=== PATIENT | female | born 1960 | race Caucasian/White ===

== ENCOUNTER 2024-08-11 04:48 | Inpatient (IN) | payer MEDICARE, SELFPAY ==
[2024-08-11] VITALS (14 sets, daily range): BP systolic 134–187; BP diastolic 63–91; PULSE 61–76; O2SAT 95–98; BMI 34.5
--- NOTE | 2024-08-11 01:10 | ED.GENMED ---
History of Present Illness
General
Chief Complaint: Breathing Problem
Source: patient and family (Son who is at bedside and providing most of HPI.)
Exam Limitations: none
Time Seen by Provider: 08/11/24 00:58
Nursing documentation reviewed up to this point in time: agreed with
History of Present Illness
History of Present Illness:
This is a 63-year-old woman who resides at home with family. She has history of MS, CVA with left hemiparesis but does ambulate with a walker. History of hypertension, hyperlipidemia, CAD/WA, pacemaker, UTI/kidney stones, [id number]
diabetes�diet controlled, hypothyroidism.
She is brought to the ED tonight by son with concern for URI symptoms that initially began a week and a half ago. Multiple family members with similar URI symptoms over the past week and a half. Initially symptoms were improving and she seemed
relatively well yesterday as well as this morning however cough has persisted and has worsened throughout the day today with progression of generalized weakness throughout the day today, increasing shortness of breath and onset of high fever tonight
with axillary temp reported at 102-103. He has been given her Coricidin HBP 3 times throughout the day today and gave her Tylenol 1000 mg around 11 PM tonight. She has had 2 episodes of vomiting today. She denies abdominal pain, no diarrhea nor
constipation. She denies back pain or flank pain. She denies dysuria and urgency nor hematuria.
No recent travel. She denies leg pain or swelling.
Noted to have low pulse ox at home at 89% prompting son to bring his mom to the ED. He states she was able to walk out to the car with his assistance.
No history of chronic lung disease.
History of MS but currently on no Biologics/takes no immunosuppressants.
Past History
Past History
ED Past Medical History: Arrthythmia, CVA, HTN, Hypercholesterolemia, NIDDM (Diet controlled), Hypothyroidism, Psychiatric (Depression) and Other (Chronic low back pain, MS; kidney stones, UTIs. Previous hospitalization 2021 for kidney stone
accompanied with UTI/sepsis.)
ED Past Surgical History: Cardiac, Gynecological, Orthopedic and Other (Thyroid)
Social History
Tobacco: Non-smoker
Alcohol: None
Drug: None
Personal: Single
Living: with family (Resides with her sister)
Employment: Disabled
Family History
Family History: Other (Noncontributory)
Phy Exam
Physical Exam
Physical Exam:
GENERAL: 63-year-old woman appears her stated age, appears somewhat chronically disabled but is bright and alert, answering questions appropriately and following commands without difficulty. Intermittent harsh/moist nonproductive cough is noted.
Low-grade fever noted. Mild resting tachypnea with room air pulse ox of 88%. She has been placed on 2 L nasal cannula oxygen. Son is at bedside.
EYE: pupils equal and reactive. anicteric
NECK: Supple, nontender, no meningismus, no significant adenopathy.
ENT: posterior pharynx is clear, oral mucosa is minimally dry. TM clear b/l, mild clear rhinorrhea.
CARDIAC: Regular rhythm, mildly tachycardic. no murmur.
LUNGS: Mild resting tachypnea, fine rhonchi at bases right greater than left, somewhat poor inspiratory effort.
ABDOMEN: Soft, nondistended, without focal tenderness, no r/g, no cvat. normoactive BS.
NEUROLOGICAL: Alert and oriented x3, minimal left hemiparesis.
SKIN: Warm and dry, normal color, skin intact. No rash.
MUSCULOSKELETAL: No C/C/E. peripheral pulses are full and equal b/l. No palpable tenderness.
PSYCH: Normal and appropriate interaction.
Scores
Heart Failure Risk
Heart Failure Risk Score: Not Applicable
Sepsis
Sepsis Screening
Sepsis Assessment: Sepsis
Sepsis Screening: Lactate >2mmol/L and Worsening O2 Saturation
Sepsis Screen
Sepsis Screen: Sepsis
Date: 08/11/24
Time: 07:04
Course
Orders/Labs/Results
Orders:
Orders
08/11/24 00:49
EKG [Electrocardiogram (*1)] Urgent
Reason for Study: Vertigo / Dizzy
EKG- Treatment ONCE
08/11/24 01:09
0.9% Sodium Chloride 1000 ml [Nss] 1,800 ml IV NOW STA
CR Chest - 2 Views Urgent
Comment:
Reason For Exam: cough, fever, hypoxia
08/11/24 01:16
CMP [Comprehensive Metabolic Panel] Urgent
COVID-19 Antigen Urgent
Source: Nasal Swab
Complete Blood Count/With Diff Urgent
Lactic Acid Urgent
Influenza A+B Rapid Molecular Urgent
EMMETT Source: Nasal Swab
Specimen Description:
08/11/24 01:35
Blood Culture Q30M
EMMETT Source: Blood/Venous
Specimen Description:
Blood Culture Q30M
EMMETT Source: Blood/Venous
Specimen Description:
08/11/24 02:08
Oseltamivir Phosphate [Tamiflu] 75 mg PO NOW STA
08/11/24 02:54
Urinalysis Reflex To Culture Urgent
Date Specimen was Collected: 08/11/24
Time Specimen was Collected: 02:53
Urine Microscopic Reflex Cult Urgent
Urine Culture Urgent
EMMETT Source: U
Specimen Description:
Date Specimen was Collected: 08/11/24
Time Specimen was Collected: 02:53
08/11/24 02:57
Acetaminophen [Tylenol] 1,000 mg PO NOW STA
Ibuprofen [Motrin] 600 mg PO NOW STA
08/11/24 04:00
Flush (0.9% Sodium Chloride) [Flush (Nss)] See Dose Instructions IV PER PROTOCOL
08/11/24 04:28
CefTRIAXone [Rocephin] 1,000 mg IV NOW STA
Doxycycline [Vibramycin] 100 mg PO NOW STA
08/11/24 04:29
Admit/Transfer Patient As Directed
Co-Sign Provider:
Level of Care: Inpatient admission
Assign to:: Telemetry
Physician / Group: Rivera
Diagnosis: Influenza A, Sepsis
Reason for Telemetry: Arrhythmia
Date to Stop Telemetry: 08/14/24
Time to Stop Telemetry: 11:00
Reason for Hospitalization: Influenza A, Sepsis
Expected length of stay greater than two midnights?: Yes
ELOS- Estimated Length of Stay in days: 3
I certify the patient meets the requirements for IP care: Yes
PRN Pain Medication Management As Directed
May give lesser potent ordered pain med per pt: Yes
preference::
Protocol:: Medication orders for pain may be administered in a
manner that supports deferring to patient preference
when the pt is:
- Requesting an ordered lesser potent pain medication.
Least to most potent pain medications are defined
as: acetaminophen < NSAID < tramadol < opioids
(morphine, oxycodone, hydromorphone).
- Requesting a lesser dose of the same medication IF
ORDERED.
- Requesting a less intrusive route of administration
if both routes are prescribed by the provider (PO <
IV).
08/11/24 04:30
Code Status As Directed
Resuscitation Status: Full Code
08/11/24 04:43
Sterile Water [Sterile Water For Injection] 10 ml .ROUTE .STK-MED ONE
08/11/24 05:45
Acetaminophen [Tylenol] 650 mg PO Q4HPRN PRN
Albuterol [ProAIR HFA INHALER] 2 puff INH R Q4HPRN PRN
Dextrose 50%-Water [Dextrose 50% Syringe] 12.5 grams IV [id number] PRN
Glucagon [GlucaGen] 1 mg IM PRN PRN
Lactated Ringers [Lr] 1,000 ml IV 100 mls/hr
08/11/24 05:45
Activity As Directed
Activity Level: Ambulate
With Assistance
Bedside Glucose Monitoring As Directed
Frequency: AC&HS
Additional Instructions:: Change to q6h if pt on TPN, tube feeding or not eating
EKG with chest pain [ECG as needed] As Directed
ECG as needed for:: Chest Pain
I/O [Intake/ Output] As Directed
Frequency: Per unit guidelines
Precautions As Directed
Type of Precautions: Droplet
Vital Signs As Directed
Frequency: Per unit guidelines
Weight As Directed
Frequency: Daily
Chest PT [Rx Chest Pt] [RESP] Routine
Special Instructions: BID
Oxygen Therapy [O2 Therapy] [RESP] Routine
Titrate/Wean O2 to maintain O2 sat greater than (%): 94
Ot Eval And Treat Routine
PT Consult [Pt Eval And Treat] Routine
Activity Level: Ambulate
With Assistance
US Renal With Bladder Routine
Comment:
Reason For Exam: Incontinence, abnormal UA
DX Deep Vein Thrombosis Video Routine
08/11/24 06:00
EKG [Electrocardiogram (*1)] IN AM
Reason for Study: Chest Pain
Regular
At Your Request: Full Participation
Levothyroxine [Synthroid] 150 mcg PO DAILY @ 0600
08/11/24 06:52
Basic Metabolic Panel IN AM
Complete Blood Count/No Diff IN AM
Glycohemoglobin (HgbA1c) IN AM
Lactic Acid IN AM
08/11/24 07:30
Insulin Aspart Corrective Low [Novolog Flexpen-Low Resistance] See Protocol SC AC
08/11/24 08:00
Amlodipine [Norvasc] 5 mg PO DAILY
Aspirin Chewable [Low Strength Aspirin] 81 mg PO DAILY
Bupropion(24Hr)Extended Releas [WELLBUTRIN XL (24 hour extended release)] 150 mg PO DAILY
Clopidogrel Bisulfate [Plavix] 75 mg PO DAILY
Guaifenesin [Mucinex] 600 mg PO Q12
Pantoprazole [Protonix] 40 mg PO DAILY
Paroxetine [Paxil] 40 mg PO DAILY
08/11/24 18:00
Enoxaparin Sodium [Lovenox] 40 mg SC QPM
08/11/24 20:00
Doxycycline [Vibramycin] 100 mg PO Q12
Oseltamivir Phosphate [Tamiflu] 75 mg PO BID
08/11/24 22:00
Atorvastatin [Lipitor] 80 mg PO HS
08/12/24 06:00
CefTRIAXone [Rocephin] 1,000 mg IV Q24H
08/14/24 11:00
DC Protocol for Telemetry ONCE
Abnormal Lab Results
08/11/24 08/11/24
16 02:54
WBC 14.8 H 10^3/uL
(4.8-10.8)
MCH 31.2 H pg
(27.0-31.0)
Abs Immat Gran (auto) 0.1 H 10^3/uL
(0-0.05)
Absolute Neuts (auto) 13.7 H 10^3/uL
(1.4-6.5)
Absolute Lymphs (auto) 0.4 L 10^3/uL
(1.2-3.4)
Immature Gran % 0.6 H %
(0-0.5)
Neutrophils % 93.0 H %
(42.2-75.2)
Lymphocytes % 2.9 L %
(20.5-51.1)
BUN 21 H mg/dl
(7-17)
Glucose 207 H mg/dl
(70-99)
Lactic Acid 2.5 H mmol/L
(0.7-2.0)
Total Bilirubin 1.9 H mg/dl
(0.2-1.3)
Ur Occult Blood Reflex 4+ A
(Negative)
Urine Nitrite (Reflex) Positive A
(Negative)
Leukocyte Esterase Rfl 2+ A
(Negative)
Urine RBC >100 A /HPF
(0-2)
Urine WBC (Reflex) >100 A /HPF
(0-5)
Urine Bacteria (Reflex) Many A
(Negative)
Urine Albumin (Reflex) 2+ A
(Neg - Trace)
08/11/24 01:16
08/11/24 01:16
Vital Signs
Initial and Last Documented VS:
Initial Vital Signs
Temp Pulse Resp BP Pulse Ox
99.6 F 116 28 152/90 88
08/11/24 00:42 08/11/24 00:42 08/11/24 00:42 08/11/24 00:42 08/11/24 00:42
Last Documented Vital Signs
Temp Pulse Resp BP Pulse Ox
99.1 F 78 24 151/73 98
08/11/24 06:00 08/11/24 06:00 08/11/24 06:00 08/11/24 06:00 08/11/24 06:16
MDM/Problems Addressed
Differential Diagnosis Includes:
Patient presents with fever, tachycardia, acute hypoxia requiring supplemental oxygen.
She meets SIRS criteria with significant concern for sepsis.
Concern for pneumonia, COVID-19, influenza.
Prior history of UTIs thus this is a consideration as well.
Mildly tachycardic but otherwise is hemodynamically stable.
Will initiate IV fluids. Labs, COVID, influenza and chest x-ray are pending.
Due to acute hypoxic respiratory failure, significant concern for sepsis patient will require acute hospitalization for further treatment and stabilization.
Chronic conditions affecting care: DM and HTN
*Radiology
Radiology exam reviewed: preliminary read by ED provider (Chest x-ray shows poor inspiratory effort. No definitive infiltrate nor evidence of CHF.)
*Pulse Oximetry
Patient hypoxic: yes
*EKG
Interpreted by ED Provider?: Yes
Comparison EKG: no changes (Unchanged from previous March 2022)
Rate: tachycardiac
Rhythm: sinus
[place]: left axis deviation
QRS Pattern: left bundle branch block
Ischemia: no ischemia
*Tray Room Worker Interpretation
Rate: tachycardiac
Interpretation: abnormal
Rhythm: sinus
*Critical Care Note
Total Time (30-74mins, 75-104mins- exclusive of procedures): 30
comment:
Critical care statement: A total of 30 minutes of critical care time was provided for this patient. This includes management of unstable vital signs, evaluation of the patient at bedside, reviewing the patient's pertinent medical records, discussion
with consultants, review of old EKGs and review of pertinent medical records. This time with separate from time utilized to perform the aforementioned documented procedures
Update Note
Update Note:
02:44
COVID is negative but influenza A is positive for influenza A.
Patient has had no exposure to chickens, poultry nor exposure to raw milk.
Labs show elevated white blood cell count of 14.8. Mildly elevated lactic acid at 2.5. Normal creatinine, normal LFTs. Bilirubin mildly elevated at 1.9 but similar and unchanged from previous.
Urinalysis is pending however patient has had no definitive UTI symptoms.
Chest x-ray shows poor inspiratory effort, no definitive evidence of infiltrate.
I suspect fever, cough, hypoxia are related to acute influenza A and she has been started on Tamiflu.
With acute hypoxic respiratory failure, elevated lactic acid, white blood cell count and fever patient meets sepsis criteria.
Will admit to hospitalist service.
ED Attending Note
-
Portions of this chart may have been created with voice recognition software.� Occasional wrong word or��sound alike� substitutions may have occurred due to the inherent limitations of voice recognition software.
Discharge Plan
Departure
Patient Disposition: Admit
Date of Disposition: 08/11/24
Time of Disposition: 02:43
Admit to: Med/Surg
Admit to doctor: Rivera
Presentation/result/management discussed w/ accepting MD/DO: Hospitalist
Condition: Serious
Covid-19: Negative COVID-19
Discharge Problem:
Influenza A, Sepsis
Interventions
Interventions:
*Risk Screen - Suicide Last Done: 08/11/24 00:42
*General Assessment Last Done: 08/11/24 05:52
*Neglect/Abuse Screening Last Done: 08/11/24 00:42
ED- Fall Risk Assessment Last Done: 08/11/24 01:57
*ED COVID-19 Vaccine History Last Done: 08/11/24 05:52
*Nursing Disposition Last Done: 08/11/24 05:50
ED- Cardiac Assessment Last Done: 08/11/24 01:57
ED- Neurological Assessment Last Done: 08/11/24 01:57
ED- Pulmonary Assessment Last Done: 08/11/24 01:57
ED-Skin Assessment Last Done: 08/11/24 01:57
Discharge Date and Time
Discharge Date/Time: 08/11/24 05:50
[2024-08-11] MEDS: NSS 1800 ML IV (01:15)
[2024-08-11 01:41] LABS: % Basophils 0.3 % (0-2); % Immature Granulocytes 0.6 % (0-0.5); % Lymphocytes 2.9 % (20.5-51.1); % Monocytes 3.2 % (1.7-9.3); Absolute Immature Granulocytes 0.1 10^3/uL (0-0.05); Absolute Lymphocytes 0.4 10^3/uL (1.2-3.4); Absolute Monocytes 0.5 10^3/uL (0.1-0.6); Absolute Neutrophils 13.7 10^3/uL (1.4-6.5); Hematocrit 40.6 % (37.0-47.0); Hemoglobin 13.8 g/dL (12.0-16.0); Mean Corpuscular Hgb 31.2 pg (27.0-31.0); Mean Corpuscular Volume 91.9 fL (81.0-99.0); Mean Platelet Volume 10.2 fL (7.4-10.4); Nucleated Red Blood Cells % 0 %; Platelet Count 251 10^3/uL (130-400); Red Blood Cell Count 4.42 10^6/uL (4.20-5.40); Red Cell Dist. Width 12.9 % (11.5-14.5); White Blood Cell Count 14.8 10^3/uL (4.8-10.8)
[2024-08-11 01:51] LABS: ALT (SGPT) 22 U/L (0-35); AST (SGOT) 24 U/L (14-36); Albumin 4.2 g/dl (3.5-5.0); Alkaline Phosphatase 114 U/L (38-126); Blood Urea Nitrogen 21 mg/dl (7-17); Calcium 9.1 mg/dl (8.4-10.2); Carbon Dioxide 28 mmol/L (22-30); Chloride 102 mmol/L (98-107); Estimated Creatinine Clearance 68 ml/min; Glucose 207 mg/dl (70-99); Potassium 3.8 mmol/L (3.5-5.1); Sodium 142 mmol/L (135-145); Total Bilirubin 1.9 mg/dl (0.2-1.3); Total Protein 7.5 g/dl (6.3-8.2); eGFR > 60.00
[2024-08-11 01:58] LABS: COVID-19 Antigen Negative (Negative)
[2024-08-11 02:16] LABS: Lactic Acid 2.5 mmol/L (0.7-2.0)
[2024-08-11] MEDS: TAMIFLU 75 MG PO ×2 (02:46→20:10)
[2024-08-11] MEDS: MOTRIN 600 MG PO (03:00)
[2024-08-11] MEDS: TYLENOL 1000 MG PO (03:00)
[2024-08-11 03:04] LABS: Urine Albumin 2+ (Neg - Trace); Urine Bilirubin Negative (Negative); Urine Character Very Cloudy (Clear); Urine Color Yellow; Urine Glucose Negative (Negative); Urine Ketone Negative (Negative); Urine Leukocyte 2+ (Negative); Urine Nitrite Positive (Negative); Urine Occult Blood 4+ (Negative); Urine Urobilinogen Negative (Neg - 1+); Urine pH 6.5 (5.0-9.0)
--- NOTE | 2024-08-11 04:34 | HPS.HSE ---
Family Physician
-
Family Physician: Parmjit Dias
Chief Complaint
-
Cough, Weakness
History of Present Illness
Patient is a 63y F with PMH significant for ASCVD, prior CVA and hypertension who presents to ED complaining of cough, weakness and chills. History obtained from patient and her family at the bedside. Entire household has been ill with fevers
and cough for the past 2 weeks or so. Patient notes that she did not receive influenza vaccination this season. Patient had cough and chills and seemed to be clinically improving; however, her symptoms then became much worse. Patient has had
increased cough and shaking chills over the past 2 days. Today she felt nauseated and had non-bloody emesis. Family noted that she seemed confused and weaker than usual. Patient was brought to the ED for further evaluation and treatment.
At the time of my examination, patient is awake and alert and states that she feels much improved from prior. She denies any pain including abdominal pain or flank pain. She is intermittently incontinent of urine and son notes that this has seemed
worse lately.
No dysuria, hematuria, etc.
Medical History
Past Medical History
Past Medical History: Reports Other
Additional Past Medical History:
ASCVD / CVA
Hypertension
Obesity
Diet-Controlled DM-II
Hypothyroidism
Nephrolithiasis
Uterine Cancer
Past Surgical History: Reports Other
Additional Past Surgical History:
PTCA with Stent
PPM Placement
DRAKE / BSO
Left TKA
Ureteroscopy with Stent
Social History
Tobacco: Former Smoker (Quit smoking > 30 years ago.)
Alcohol: None
Drug: None
Living: With Family
Family History
Family History: Not pertinent
Allergies / Home Medications
Allergies reflects when Allergies were last updated in [employer].
Home Medications with original date entered in [employer]
Allergy/Medication List:
Allergies
Allergy/AdvReac Type Severity Reaction Status Date / Time
No Known Allergies Allergy Verified 08/11/24 00:44
Home Medications
aspirin 81 mg chewable tablet 81 mg PO DAILY Blood clot prevention/tx 01/13/19
ezetimibe 10 mg tablet 10 mg PO HS High cholesterol 01/13/19
clopidogrel 75 mg tablet 75 mg PO DAILY Blood clot prevention/tx 03/03/19
atorvastatin 80 mg tablet 80 mg PO HS High cholesterol 04/07/22
paroxetine HCl 40 mg tablet 40 mg PO DAILY mental health 04/07/22
amlodipine 5 mg tablet 5 mg PO DAILY 30 days #30 tabs 04/08/22
cholecalciferol (vitamin D3) 25 mcg (1,000 unit) tablet (Vitamin D3) 25 mcg PO DAILY 05/02/22
bupropion HCl 150 mg 24 hr tablet, extended release 150 mg PO DAILY 08/11/24
levothyroxine 150 mcg tablet 150 mcg PO DAILY 08/11/24
Review of Systems
-
History Source: Patient and Family
A 12 point ROS was completed and negative except as noted: Yes
Constitutional: Reports Fever, Fatigue and Chills
EENT: Reports Sore Throat and Runny Nose
Respiratory: Reports Cough and Trouble Breathing; Denies Hemoptysis
Cardiac: Denies Chest Pain or Palpitations
Abdomen/GI: Reports Nausea and Vomiting; Denies Abdominal Pain or Diarrhea
: Reports Frequency and Incontinence; Denies Dysuria, Flank Pain or Bleeding
Musculoskeletal: Denies Joint Pain or Edema
Neurological: Reports Weakness; Denies Dizzy or Headache
Psych: Denies Depression or Anxiety
Physical Exam
Vital Signs
Vital Signs
Temp Pulse Resp BP Pulse Ox
99.7 F 87 24 167/91 95
08/11/24 04:30 08/11/24 03:30 08/11/24 03:30 08/11/24 03:01 08/11/24 03:39
Physical Exam
General: Other (63y F in no acute distress, Hacking cough appreciated during exam.)
HEENT: Other (Dry MM. Thick neck.)
Respiratory: Other (Coarse breath sounds bilaterally - R > L. No wheezing or rales.)
Cardiac: S1/S2, Regular Rhythm and Murmur (II/ ROSEANNA)
GI: Soft, Non Tender, Non Distended and Normal Bowel Sounds
Musculoskeletal: No Clubbing, No Cyanosis and No Edema
Neuro: AO x 3 and Other (Left sided weakness - chronic. No new focal deficits.)
Laboratory Results
-
08/11/24 01:16
08/11/24 01:16
Laboratory Results
Lactic Acid 2.5 mmol/L (0.7-2.0) H 08/11/24 01:16
Total Bilirubin 1.9 mg/dl (0.2-1.3) H 08/11/24 01:16
AST 24 U/L (14-36) 08/11/24 01:16
ALT 22 U/L (0-35) 08/11/24 01:16
Alkaline Phosphatase 114 U/L (38-126) 08/11/24 01:16
Impression/Plan
-
A/P: Patient is a 63y F with PMH significant for ASCVD, prior CVA, HTN and DM-II who presents to ED complaining of cough, chills and weakness.
Influenza A
Sepsis secondary to the above
- Admit for further evaluation and treatment.
- Patient presents with fever, tachycardia, tachypnea and leukocytosis with positive Flu A assay.
- Given bimodal history of illness and current sepsis presentation will also cover with abx for possible secondary bacterial infection.
- Supportive care with O2, mucolytics, IVFs, etc.
- Follow for clinical improvement.
- Follow proper flu precautions.
Incontinence
Possible UTI
h/o Nephrolithiasis
- UA with pos nitrites and 4+ blood. Micro is still pending.
- Abx as above should cover any additional urinary pathogens.
- Check US given prior h/o obstructing stone / sepsis.
- Patient denies dysuria, flank pain, etc - but son notes that she never complains of pain.
ASCVD (CAD, CVA)
- Stable. No chest pain, new neurologic symptoms, etc.
- Continue current CV med regimen including DAPT, etc.
Benign Hypertension
- Not ideal - likely due to acute illness / stress.
- Continue current med regimen ans adjust as needed for improved control.
Diet-Controlled DM-II
- Hyperglycemia on admission likely due to acute illness / sepsis.
- Follow glucose and cover with SSI as needed.
- Update A1C.
Hypothyroidism
- Stable. Continue T4 supplementation.
DVT Prophylaxis: Lovenox
Code Status: Full
[2024-08-11] MEDS: VIBRAMYCIN 100 MG PO ×2 (04:46→20:10)
[2024-08-11] MEDS: ROCEPHIN 1000 MG IV (04:46)
[2024-08-11 05:02] LABS: Urine Amorphous Seen; Urine Bacteria Many (Negative); Urine Red Blood Cell >100 /HPF (0-2); Urine Squamous Cell >30 /LPF (Few); Urine White Cell >100 /HPF (0-5)
--- NOTE | 2024-08-11 05:57 | PTCARENOTE ---
received patient as admission from ED to room 2123. pt pulled over from stretcher to bed. pt reports she normally uses a rolling walker at home. pt orientedx2- disoriented to month stated it was august, correctly stated the year. forgetful.
history of cva, weakness on left side. admission completed. pt oriented to room and unit, updated on plan of care.
[2024-08-11] MEDS: LR 1000 IV ×2 (06:12→17:16)
[2024-08-11] MEDS: SYNTHROID 150 MCG PO (06:12)
[2024-08-11 07:06] LABS: Hematocrit 32.7 % (37.0-47.0); Hemoglobin 11.3 g/dL (12.0-16.0); Mean Corp Hgb Conc. 34.6 g/dL (33.0-37.0); Mean Corpuscular Hgb 31.7 pg (27.0-31.0); Mean Corpuscular Volume 91.9 fL (81.0-99.0); Platelet Count 209 10^3/uL (130-400); Red Blood Cell Count 3.56 10^6/uL (4.20-5.40); Red Cell Dist. Width 13.1 % (11.5-14.5); White Blood Cell Count 15.4 10^3/uL (4.8-10.8)
[2024-08-11 07:19] LABS: Lactic Acid 1.5 mmol/L (0.7-2.0)
[2024-08-11 07:36] LABS: Glucose - Point of Care 154 mg/dl (70-99)
[2024-08-11 08:00] LABS: Blood Urea Nitrogen 20 mg/dl (7-17); Calcium 8.1 mg/dl (8.4-10.2); Carbon Dioxide 26 mmol/L (22-30); Chloride 106 mmol/L (98-107); Estimated Creatinine Clearance 76 ml/min; Glucose 154 mg/dl (70-99); Potassium 3.7 mmol/L (3.5-5.1); Sodium 142 mmol/L (135-145); eGFR > 60.00
[2024-08-11 08:51] LABS: Glycohemoglobin (HgbA1c) 6.6 % (4.0-5.6)
[2024-08-11] MEDS: PLAVIX 75 MG PO (08:58)
[2024-08-11] MEDS: LOW STRENGTH ASPIRIN 81 MG PO (08:58)
[2024-08-11] MEDS: PAXIL 40 MG PO (08:58)
[2024-08-11] MEDS: WELLBUTRIN XL (24 hour extended release) 150 MG PO (08:58)
[2024-08-11] MEDS: PROTONIX 40 MG PO (08:58)
[2024-08-11] MEDS: MUCINEX 600 MG PO ×2 (08:58→20:10)
[2024-08-11] MEDS: NORVASC 5 MG PO (08:58)
[2024-08-11] MEDS: NOVOLOG FLEXPEN-LOW RESISTANCE 1 UNITS SC ×2 (10:17→13:46)
--- NOTE | 2024-08-11 10:59 | W.PN.HOSP.TC ---
Today's Communication/Plan
-
Monitor vital signs see plan
Continue with Tamiflu
Continue with ceftriaxone and doxycycline
PT/OT
Follow cultures
Follow fever curve
Nonbillable note
Assessment / Plan
Assessment / Plan
General: no acute distress
HEENT: Anicteric, pink conjunctiva
Respiratory: Other (Coarse breath sounds bilaterally - R > L. No wheezing or rales.)
Cardiac: S1/S2, Regular Rhythm and Murmur (II/ ROSEANNA)
GI: Soft, Non Tender, Non Distended and Normal Bowel Sounds
Musculoskeletal: No Clubbing, No Cyanosis and No Edema
Neuro: AO x 3 and Other (Left sided weakness - chronic. No new focal deficits.)
Influenza A; acute hypoxic respiratory insufficiency secondary to flu
Sepsis secondary to the above
- Patient presents with fever, tachycardia, tachypnea and leukocytosis with positive Flu A assay.
- Given bimodal history of illness and current sepsis presentation will also cover with abx for possible secondary bacterial infection.
- Supportive care with O2, mucolytics
Follow fever curve
Lactic acidosis
Now resolved
Incontinence
Possible UTI
h/o Nephrolithiasis
- UA noted, urine culture pending. Continue with abx
- Abx as above should cover any additional urinary pathogens.
- Check US given prior h/o obstructing stone / sepsis.
- Patient denies dysuria, flank pain, etc - but son notes that she never complains of pain.
ASCVD (CAD, CVA)
- Stable. No chest pain, new neurologic symptoms, etc.
- Continue current CV med regimen including DAPT, etc.
Benign Hypertension
- Not ideal - likely due to acute illness / stress.
- Continue current med regimen ans adjust as needed for improved control.
Diet-Controlled DM-II
- Hyperglycemia on admission likely due to acute illness / sepsis.
- Follow glucose and cover with SSI as needed.
- A1c 6.6
Hypothyroidism
- Stable. Continue T4 supplementation.
DVT Prophylaxis: Lovenox
Code Status: Full
Anticipated Discharge: > 48 hours
Subjective/Interval History
-
Date of Service: August 11, 2024
denies pain
Objective Data
-
Labs:
Laboratory Results
08/11/24 08/11/24
01:16 06:52
WBC 14.8 H 15.4 H
Hgb 13.8 11.3 L
Hct 40.6 32.7 L
Plt Count 251 209
Sodium 142 142
Potassium 3.8 3.7
Chloride 102 106
Carbon Dioxide 28 26
BUN 21 H 20 H
Creatinine 1.0 0.9
Glucose 207 H 154 H
Calcium 9.1 8.1 L
Total Bilirubin 1.9 H
AST 24
ALT 22
Alkaline Phosphatase 114
Vital Signs:
Vital Signs
Temp Pulse Resp BP Pulse Ox
98.3 F 72 17 134/65 92
08/11/24 07:36 08/11/24 07:36 08/11/24 07:36 08/11/24 07:36 08/11/24 07:36
[2024-08-11 13:41] LABS: Glucose - Point of Care 152 mg/dl (70-99)
--- NOTE | 2024-08-11 17:11 | CM ---
Patient seen at bedside
IA completed
Case management consult completed-Advanced directives resources given to patient
Lives in a 2 story home with her sister, her son & his girlfriend, 1 step to enter - 1st floor set up with full bath
PLOF: Independent with walker
DME: Walker, cane, shower seat, raised toilet seat, commode
Has had [facility] in past - Denies rehab
PT rec HH - [facility] as patient prefers
Denies insecurities
PCP: Parmjit Dias
Pharmacy: [facility]
PLAN: Home with VN -referral to [facility]
[2024-08-11 17:16] LABS: Glucose - Point of Care 116 mg/dl (70-99)
[2024-08-11] MEDS: LOVENOX 40 MG SC (17:16)
[2024-08-11] MEDS: NOVOLOG FLEXPEN-LOW RESISTANCE SC (17:17)
[2024-08-11] MEDS: DESENEX/MITRAZOL/ZEASORB 1 APPLIC TOPICAL (20:12)
[2024-08-11] MEDS: LIPITOR 80 MG PO (21:19)
[2024-08-11 21:24] LABS: Glucose - Point of Care 157 mg/dl (70-99)
[2024-08-12] VITALS (7 sets, daily range): BP systolic 107–170; BP diastolic 65–86; PULSE 72; O2SAT 96; BMI 35.5
[2024-08-12] MEDS: LR 1000 IV (02:18)
[2024-08-12] MEDS: SYNTHROID 150 MCG PO (05:04)
[2024-08-12] MEDS: STERILE WATER FOR INJECTION 10 ML IV (05:04)
[2024-08-12] MEDS: ROCEPHIN 1000 MG IV (05:04)
[2024-08-12] MEDS: FLUSH (NSS) 1 FLUSH IV (05:05)
[2024-08-12] MEDS: ROBITUSSIN DM 5 ML PO ×3 (05:39→21:38)
[2024-08-12 06:40] LABS: % Basophils 0.2 % (0-2); % Eosinophils 0.6 % (0-6); % Immature Granulocytes 0.7 % (0-0.5); % Lymphocytes 11.5 % (20.5-51.1); % Monocytes 3.7 % (1.7-9.3); % Neutrophils 83.3 % (42.2-75.2); Absolute Eosinophils 0.1 10^3/uL (0-0.7); Absolute Immature Granulocytes 0.1 10^3/uL (0-0.05); Absolute Lymphocytes 1.2 10^3/uL (1.2-3.4); Absolute Monocytes 0.4 10^3/uL (0.1-0.6); Absolute Neutrophils 8.6 10^3/uL (1.4-6.5); Hematocrit 31.3 % (37.0-47.0); Hemoglobin 10.6 g/dL (12.0-16.0); Mean Corp Hgb Conc. 33.9 g/dL (33.0-37.0); Mean Corpuscular Volume 94.6 fL (81.0-99.0); Mean Platelet Volume 10.6 fL (7.4-10.4); Nucleated Red Blood Cells % 0 %; Platelet Count 233 10^3/uL (130-400); Red Blood Cell Count 3.31 10^6/uL (4.20-5.40); Red Cell Dist. Width 13.2 % (11.5-14.5); White Blood Cell Count 10.4 10^3/uL (4.8-10.8)
[2024-08-12 07:30] LABS: ALT (SGPT) 14 U/L (0-35); AST (SGOT) 18 U/L (14-36); Albumin 3.1 g/dl (3.5-5.0); Alkaline Phosphatase 87 U/L (38-126); Blood Urea Nitrogen 16 mg/dl (7-17); Calcium 8.2 mg/dl (8.4-10.2); Carbon Dioxide 29 mmol/L (22-30); Chloride 104 mmol/L (98-107); Estimated Creatinine Clearance 86 ml/min; Glucose 120 mg/dl (70-99); Potassium 3.5 mmol/L (3.5-5.1); Sodium 141 mmol/L (135-145); Total Bilirubin 1.8 mg/dl (0.2-1.3); Total Protein 6.1 g/dl (6.3-8.2); eGFR > 60.00
[2024-08-12 07:45] LABS: Glucose - Point of Care 113 mg/dl (70-99)
[2024-08-12] MEDS: NOVOLOG FLEXPEN-LOW RESISTANCE SC ×2 (07:50→12:33)
[2024-08-12 08:09] LABS: Hepatitis C Antibody Negative (Negative)
[2024-08-12] MEDS: TAMIFLU 75 MG PO ×2 (08:18→21:09)
[2024-08-12] MEDS: PROTONIX 40 MG PO (08:18)
[2024-08-12] MEDS: PAXIL 40 MG PO (08:18)
[2024-08-12] MEDS: MUCINEX 600 MG PO ×2 (08:18→21:09)
[2024-08-12] MEDS: LOW STRENGTH ASPIRIN 81 MG PO (08:18)
[2024-08-12] MEDS: DESENEX/MITRAZOL/ZEASORB 1 APPLIC TOPICAL ×2 (08:19→21:10)
[2024-08-12] MEDS: NORVASC 5 MG PO (08:19)
[2024-08-12] MEDS: WELLBUTRIN XL (24 hour extended release) 150 MG PO (08:19)
[2024-08-12] MEDS: VIBRAMYCIN 100 MG PO ×2 (08:19→21:09)
[2024-08-12] MEDS: PLAVIX 75 MG PO (08:19)
--- NOTE | 2024-08-12 09:44 | PN.CDI ---
CDI
- -
CDI:
Physician Documentation Request
Admit Date: 08/11/24 04:48
Dear Doctor Dieudonne,
Please review the following and provide your response in the progress notes.
Clinical Indicators:
The diagnosis of pneumonia was included in the signed 08/11 CXR.
- 08/11 CXR 'Parenchymal opacity within the left lower lung with loss of definition left hemidiaphragm, most likely pneumonia'
- 08/11 PN 'will also cover with abx for possible secondary bacterial infection'
- IV Ceftriaxone, doxycycline given
Please indicate in your progress notes if you are in agreement that the above diagnosis is valid for this patient:
____ - Pneumonia is a valid diagnosis (Please include it in your progress notes)
____ - Pneumonia is not a valid diagnosis for this patient
____ - Pneumonia is not yet confirmed but remains a suspected condition
____ - Other
Use of terms such as suspected, likely, concern for, or probable are acceptable for a diagnosis that is being evaluated, monitored or treated as if it exists and can be coded in the inpatient setting, when documented at the time of discharge.
Thank you,
Tracy Cowart RN
CDI Specialist
Please use your independent medical judgment in providing your response.
--- NOTE | 2024-08-12 11:36 | W.PN.HOSP.TC ---
Today's Communication/Plan
-
Monitor vital signs see plan
Follow fever curve
Wean oxygen as tolerated
Follow fever curve
Follow cultures
Continue with antibiotics
Continue Tamiflu
Discussed with son over the phone
Assessment / Plan
Assessment / Plan
General: no acute distress
HEENT: Anicteric, pink conjunctiva
Respiratory: Other (Coarse breath sounds bilaterally - R > L. No wheezing or rales.)
Cardiac: S1/S2, Regular Rhythm and Murmur (II/ ROSEANNA)
GI: Soft, Non Tender, Non Distended and Normal Bowel Sounds
Musculoskeletal: No Clubbing, No Cyanosis and No Edema
Neuro: AO x 3 and Other (Left sided weakness - chronic. No new focal deficits.)
Influenza A; acute hypoxic respiratory insufficiency secondary to flu with superimposed bacterial pneumonia
Sepsis secondary to the above
- Patient presents with fever, tachycardia, tachypnea and leukocytosis with positive Flu A assay.
Continue with ceftriaxone and doxycycline
- Supportive care with O2, mucolytics
Follow fever curve
Lactic acidosis
Now resolved
Incontinence
Possible UTI
h/o Nephrolithiasis
- UA noted, urine culture pending. Continue with abx
- Abx as above should cover any additional urinary pathogens.
Renal ultrasound with moderate rightpelvicalyceal dilation which appears increased compared to ultrasound of the abdomen April 03, 2022. There appears to be mild right renal parenchymal thinning.
Probable nephrolith in the upper pole the right kidney.
Patient currently has no pain or any signs of hydro. She is now feeling better.
ASCVD (CAD, CVA)
- Stable. No chest pain, new neurologic symptoms, etc.
- Continue current CV med regimen including DAPT, etc.
Benign Hypertension
- Not ideal - likely due to acute illness / stress.
- Continue current med regimen ans adjust as needed for improved control.
Diet-Controlled DM-II
- Hyperglycemia on admission likely due to acute illness / sepsis.
- Follow glucose and cover with SSI as needed.
- A1c 6.6
Hypothyroidism
- Stable. Continue T4 supplementation.
DVT Prophylaxis: Lovenox
Code Status: Full
I spent a total of 51 minutes with the patient or on the floor. More than 50% of this time involved counseling and coordination of care.
Anticipated Discharge: 24 - 48 hours
Subjective/Interval History
-
Date of Service: August 12, 2024
denies pain
Objective Data
-
Labs:
Laboratory Results
08/12/24
05:24
WBC 10.4
Hgb 10.6 L
Hct 31.3 L
Plt Count 233
Sodium 141
Potassium 3.5
Chloride 104
Carbon Dioxide 29
BUN 16
Creatinine 0.8
Glucose 120 H
Calcium 8.2 L
Total Bilirubin 1.8 H
AST 18
ALT 14
Alkaline Phosphatase 87
Vital Signs:
Vital Signs
Temp Pulse Resp BP Pulse Ox
99.1 F 76 17 166/75 94
08/12/24 07:48 08/12/24 08:19 08/12/24 07:48 08/12/24 08:19 08/12/24 07:48
I&O
08/11/24 08/12/24 08/13/24
06:59 06:59 06:59
Intake Total 2099
Balance 2099
[2024-08-12 12:29] LABS: Glucose - Point of Care 134 mg/dl (70-99)
[2024-08-12 16:18] LABS: Glucose - Point of Care 178 mg/dl (70-99)
[2024-08-12] MEDS: LOVENOX 40 MG SC (16:43)
[2024-08-12] MEDS: NOVOLOG FLEXPEN-LOW RESISTANCE 1 UNITS SC (16:45)
[2024-08-12] MEDS: LIPITOR 80 MG PO (21:09)
[2024-08-12 22:20] LABS: Glucose - Point of Care 140 mg/dl (70-99)
[2024-08-12] MEDS: ProAIR HFA INHALER 2 PUFF INH (22:56)
[2024-08-13] VITALS (12 sets, daily range): BP systolic 138–182; BP diastolic 70–89; BMI 34.6
[2024-08-13] MEDS: ROCEPHIN 1000 MG IV (06:28)
[2024-08-13] MEDS: STERILE WATER FOR INJECTION 10 ML IV (06:28)
[2024-08-13] MEDS: SYNTHROID 150 MCG PO (06:28)
[2024-08-13] MEDS: FLUSH (NSS) 1 FLUSH IV (06:29)
[2024-08-13 07:27] LABS: Glucose - Point of Care 112 mg/dl (70-99)
[2024-08-13] MEDS: NOVOLOG FLEXPEN-LOW RESISTANCE SC ×3 (07:28→17:36)
[2024-08-13 08:14] LABS: % Basophils 0.3 % (0-2); % Immature Granulocytes 0.3 % (0-0.5); % Lymphocytes 17.1 % (20.5-51.1); % Monocytes 4.5 % (1.7-9.3); % Neutrophils 75.8 % (42.2-75.2); Absolute Eosinophils 0.1 10^3/uL (0-0.7); Absolute Lymphocytes 1.1 10^3/uL (1.2-3.4); Absolute Monocytes 0.3 10^3/uL (0.1-0.6); Hematocrit 30.5 % (37.0-47.0); Hemoglobin 10.3 g/dL (12.0-16.0); Mean Corp Hgb Conc. 33.8 g/dL (33.0-37.0); Mean Corpuscular Hgb 31.4 pg (27.0-31.0); Mean Platelet Volume 10.4 fL (7.4-10.4); Nucleated Red Blood Cells % 0 %; Platelet Count 248 10^3/uL (130-400); Red Blood Cell Count 3.28 10^6/uL (4.20-5.40); Red Cell Dist. Width 13.1 % (11.5-14.5); White Blood Cell Count 6.6 10^3/uL (4.8-10.8)
[2024-08-13] MEDS: VIBRAMYCIN 100 MG PO ×2 (08:17→20:41)
[2024-08-13] MEDS: PROTONIX 40 MG PO (08:17)
[2024-08-13] MEDS: WELLBUTRIN XL (24 hour extended release) 150 MG PO (08:17)
[2024-08-13] MEDS: MUCINEX 600 MG PO ×2 (08:17→20:41)
[2024-08-13] MEDS: PAXIL 40 MG PO (08:18)
[2024-08-13] MEDS: TAMIFLU 75 MG PO ×2 (08:19→20:42)
[2024-08-13] MEDS: NORVASC 5 MG PO (08:19)
[2024-08-13] MEDS: DESENEX/MITRAZOL/ZEASORB 1 APPLIC TOPICAL ×2 (08:20→20:43)
[2024-08-13] MEDS: PLAVIX 75 MG PO (08:20)
[2024-08-13] MEDS: LOW STRENGTH ASPIRIN 81 MG PO (08:20)
[2024-08-13 08:33] LABS: ALT (SGPT) 15 U/L (0-35); AST (SGOT) 16 U/L (14-36); Albumin 3.1 g/dl (3.5-5.0); Alkaline Phosphatase 84 U/L (38-126); Blood Urea Nitrogen 15 mg/dl (7-17); Calcium 8.3 mg/dl (8.4-10.2); Carbon Dioxide 29 mmol/L (22-30); Chloride 104 mmol/L (98-107); Estimated Creatinine Clearance 97 ml/min; Glucose 108 mg/dl (70-99); Potassium 3.4 mmol/L (3.5-5.1); Sodium 141 mmol/L (135-145); Total Bilirubin 1.1 mg/dl (0.2-1.3); Total Protein 6.2 g/dl (6.3-8.2); eGFR > 60.00
[2024-08-13] MEDS: KCL 20 MEQ PO (10:06)
--- NOTE | 2024-08-13 11:08 | W.PN.HOSP.TC ---
Today's Communication/Plan
-
Monitor vital signs
see plan
Wean oxygen as tolerated, currently on 3 L
Continue with Tamiflu
Continue antibiotics
home o2 eval in am
Assessment / Plan
Assessment / Plan
General: no acute distress
HEENT: Anicteric, pink conjunctiva
Respiratory: Other (Coarse breath sounds bilaterally - R > L. No wheezing or rales.)
Cardiac: S1/S2, Regular Rhythm and Murmur (II/ ROSEANNA)
GI: Soft, Non Tender, Non Distended and Normal Bowel Sounds
Musculoskeletal: No Clubbing, No Cyanosis and No Edema
Neuro: AO x 3 and Other (Left sided weakness - chronic. No new focal deficits.)
Influenza A; acute hypoxic respiratory insufficiency secondary to flu with superimposed bacterial pneumonia
Sepsis secondary to the above
- Patient presents with fever, tachycardia, tachypnea and leukocytosis with positive Flu A assay.
Still on 3 L, wean oxygen as tolerated
Continue with ceftriaxone and doxycycline
- Supportive care with O2, mucolytics
Follow fever curve
Lactic acidosis
Now resolved
Incontinence
Possible UTI
h/o Nephrolithiasis
- UA noted, urine culture with mixed jesse
- Abx as above should cover any additional urinary pathogens.
Renal ultrasound with moderate right pelvicalyceal dilation which appears increased compared to ultrasound of the abdomen April 03, 2022. There appears to be mild right renal parenchymal thinning.
Probable nephrolith in the upper pole the right kidney.
Patient currently has no pain or any signs of hydro. She is now feeling better. Follow-up with urology outpatient
ASCVD (CAD, CVA)
- Stable. No chest pain, new neurologic symptoms, etc.
- Continue current CV med regimen including DAPT, etc.
Benign Hypertension
- Not ideal - likely due to acute illness / stress.
- Continue current med regimen ans adjust as needed for improved control.
Diet-Controlled DM-II
- Hyperglycemia on admission likely due to acute illness / sepsis.
- Follow glucose and cover with SSI as needed.
- A1c 6.6
Hypothyroidism
- Stable. Continue T4 supplementation.
DVT Prophylaxis: Lovenox
Code Status: Full
PT/OT recommending home health
Anticipated Discharge: Within 24 hours
Subjective/Interval History
-
Date of Service: August 13, 2024
denies pain
Objective Data
-
Labs:
Laboratory Results
08/13/24
07:12
WBC 6.6
Hgb 10.3 L
Hct 30.5 L
Plt Count 248
Sodium 141
Potassium 3.4 L
Chloride 104
Carbon Dioxide 29
BUN 15
Creatinine 0.7
Glucose 108 H
Calcium 8.3 L
Total Bilirubin 1.1
AST 16
ALT 15
Alkaline Phosphatase 84
Vital Signs:
Vital Signs
Temp Pulse Resp BP Pulse Ox
97.5 F 60 16 152/74 95
08/13/24 07:25 08/13/24 08:19 08/13/24 07:25 08/13/24 08:31 08/13/24 10:02
I&O
08/12/24 08/13/24 08/14/24
06:59 06:59 06:59
Intake Total 2099 650 / 650
Balance 2099 650 / 650
[2024-08-13 12:12] LABS: Glucose - Point of Care 131 mg/dl (70-99)
--- NOTE | 2024-08-13 16:05 | CM ---
Patient accepted for [facility] but is for home O2 assessment tomorrow. CM will continue to follow for discharge planning needs.
Plan; home with [facility], pending home O2 assessment
[2024-08-13] MEDS: LOVENOX 40 MG SC (17:16)
[2024-08-13 17:23] LABS: Glucose - Point of Care 116 mg/dl (70-99)
[2024-08-13] MEDS: LR 1000 IV (18:16)
--- NOTE | 2024-08-13 18:36 | PTCARENOTE ---
Patient drowsy throughout shift, refusing to get OOB or have assistance with hygiene, wakes to verbal stimuli, AAOx3, heavily incontinent of urine. Son at bedside stating patient is drowsier than yesterday, requesting IVF d/t concerns patient is
drowsy and therefore not drinking enough fluids. This RN communicated with MD, LR @ 50 ml/hr ordered per MD, infusing through R AC IV.
[2024-08-13 21:45] LABS: Glucose - Point of Care 125 mg/dl (70-99)
[2024-08-13] MEDS: LIPITOR 80 MG PO (22:11)
[2024-08-13] MEDS: APRESOLINE 5 MG IV (22:23)
[2024-08-14 03:38] VITALS: BP 150/79
[2024-08-14] MEDS: ROCEPHIN 1000 MG IV (05:53)
[2024-08-14] MEDS: STERILE WATER FOR INJECTION 10 ML IV (05:54)
[2024-08-14] MEDS: SYNTHROID 150 MCG PO (05:54)
[2024-08-14 06:59] LABS: ALT (SGPT) 13 U/L (0-35); AST (SGOT) 16 U/L (14-36); Albumin 3.3 g/dl (3.5-5.0); Alkaline Phosphatase 91 U/L (38-126); Blood Urea Nitrogen 15 mg/dl (7-17); Calcium 8.8 mg/dl (8.4-10.2); Carbon Dioxide 30 mmol/L (22-30); Chloride 104 mmol/L (98-107); Estimated Creatinine Clearance 97 ml/min; Glucose 114 mg/dl (70-99); Potassium 3.6 mmol/L (3.5-5.1); Sodium 142 mmol/L (135-145); Total Bilirubin 1.3 mg/dl (0.2-1.3); Total Protein 6.4 g/dl (6.3-8.2); eGFR > 60.00
[2024-08-14 07:10] VITALS: BP 131/82
[2024-08-14 07:22] LABS: Glucose - Point of Care 108 mg/dl (70-99)
[2024-08-14] MEDS: FLUSH (NSS) IV ×2 (07:58)
[2024-08-14] MEDS: NOVOLOG FLEXPEN-LOW RESISTANCE SC ×2 (07:59→15:58)
[2024-08-14] MEDS: TAMIFLU 75 MG PO ×2 (08:37→21:55)
[2024-08-14] MEDS: MUCINEX 600 MG PO ×2 (08:38→21:55)
[2024-08-14] MEDS: PROTONIX 40 MG PO (08:38)
[2024-08-14] MEDS: LOW STRENGTH ASPIRIN 81 MG PO (08:38)
[2024-08-14] MEDS: PLAVIX 75 MG PO (08:38)
[2024-08-14] MEDS: PAXIL 40 MG PO (08:38)
[2024-08-14] MEDS: WELLBUTRIN XL (24 hour extended release) 150 MG PO (08:38)
[2024-08-14] MEDS: NORVASC 5 MG PO (08:38)
[2024-08-14] MEDS: VIBRAMYCIN 100 MG PO ×2 (08:38→21:55)
[2024-08-14] MEDS: DESENEX/MITRAZOL/ZEASORB 1 APPLIC TOPICAL ×2 (08:38→21:56)
[2024-08-14] MEDS: ROBITUSSIN DM 5 ML PO ×2 (08:40→15:07)
[2024-08-14 10:04] LABS: % Basophils 0.3 % (0-2); % Eosinophils 1.9 % (0-6); % Immature Granulocytes 0.5 % (0-0.5); % Monocytes 4.5 % (1.7-9.3); % Neutrophils 75.8 % (42.2-75.2); Absolute Eosinophils 0.1 10^3/uL (0-0.7); Absolute Lymphocytes 1.1 10^3/uL (1.2-3.4); Absolute Monocytes 0.3 10^3/uL (0.1-0.6); Absolute Neutrophils 4.8 10^3/uL (1.4-6.5); Hematocrit 33.5 % (37.0-47.0); Hemoglobin 11.1 g/dL (12.0-16.0); Mean Corp Hgb Conc. 33.1 g/dL (33.0-37.0); Mean Corpuscular Hgb 31.3 pg (27.0-31.0); Mean Corpuscular Volume 94.4 fL (81.0-99.0); Mean Platelet Volume 10.1 fL (7.4-10.4); Nucleated Red Blood Cells % 0 %; Platelet Count 299 10^3/uL (130-400); Red Blood Cell Count 3.55 10^6/uL (4.20-5.40); Red Cell Dist. Width 12.9 % (11.5-14.5); White Blood Cell Count 6.3 10^3/uL (4.8-10.8)
[2024-08-14 11:05] VITALS: BP 164/78
--- NOTE | 2024-08-14 11:15 | W.PN.HOSP.TC ---
Today's Communication/Plan
-
Monitor vital signs see plan
Still on 3 L, wean oxygen as tolerated
Continue with antibiotics
Hopeful DC soon
cw tamiflu
Assessment / Plan
Assessment / Plan
General: no acute distress
HEENT: Anicteric, pink conjunctiva
Respiratory: Other (Coarse breath sounds bilaterally - R > L. No wheezing or rales.)
Cardiac: S1/S2, Regular Rhythm and Murmur (II/ ROSEANNA)
GI: Soft, Non Tender, Non Distended and Normal Bowel Sounds
Musculoskeletal: No Clubbing, No Cyanosis and No Edema
Neuro: AO x 3 and Other (Left sided weakness - chronic.)
Influenza A; acute hypoxic respiratory insufficiency secondary to flu with superimposed bacterial pneumonia
Sepsis secondary to the above
- Patient presents with fever, tachycardia, tachypnea and leukocytosis with positive Flu A assay.
Still on 3 L, wean oxygen as tolerated
Continue with ceftriaxone and doxycycline; treat for total 5 days; last day 08/16
- Supportive care with O2, mucolytics
Follow fever curve
cw tamiflu
Lactic acidosis
Now resolved
Incontinence
Possible UTI
h/o Nephrolithiasis
- UA noted, urine culture with mixed jesse
- Abx as above should cover any additional urinary pathogens.
Renal ultrasound with moderate right pelvicalyceal dilation which appears increased compared to ultrasound of the abdomen April 03, 2022. There appears to be mild right renal parenchymal thinning.
Probable nephrolith in the upper pole the right kidney.
Patient currently has no pain or any signs of hydro. She is now feeling better. Follow-up with urology outpatient
ASCVD (CAD, CVA)
- Stable. No chest pain, new neurologic symptoms, etc.
- Continue current CV med regimen including DAPT, etc.
Benign Hypertension
- Not ideal - likely due to acute illness / stress.
- Continue current med regimen ans adjust as needed for improved control.
Diet-Controlled DM-II
- Hyperglycemia on admission likely due to acute illness / sepsis.
- Follow glucose and cover with SSI as needed.
- A1c 6.6
Hypothyroidism
- Stable. Continue T4 supplementation.
DVT Prophylaxis: Lovenox
Code Status: Full
PT/OT recommending home health
Anticipated Discharge: Within 24 hours
Subjective/Interval History
-
Date of Service: August 14, 2024
denies pain
Objective Data
-
Labs:
Laboratory Results
08/14/24
06:00
WBC 6.3
Hgb 11.1 L
Hct 33.5 L
Plt Count 299 D
Sodium 142
Potassium 3.6
Chloride 104
Carbon Dioxide 30
BUN 15
Creatinine 0.7
Glucose 114 H
Calcium 8.8
Total Bilirubin 1.3
AST 16
ALT 13
Alkaline Phosphatase 91
Vital Signs:
Vital Signs
Temp Pulse Resp BP Pulse Ox
98.3 F 66 18 131/82 97
08/14/24 07:10 08/14/24 08:38 08/14/24 07:10 08/14/24 08:38 08/14/24 07:10
I&O
08/13/24 08/14/24 08/15/24
06:59 06:59 06:59
Intake Total 650 / 650 1560 / 1560
Balance 650 / 650 1560 / 1560
[2024-08-14 12:14] LABS: Glucose - Point of Care 156 mg/dl (70-99)
[2024-08-14] MEDS: NOVOLOG FLEXPEN-LOW RESISTANCE 1 UNITS SC (13:30)
[2024-08-14 13:39] VITALS: BP 155/71
[2024-08-14] MEDS: APRESOLINE 5 MG IV (15:15)
[2024-08-14 15:26] VITALS: BP 163/67
[2024-08-14 15:57] LABS: Glucose - Point of Care 119 mg/dl (70-99)
[2024-08-14] MEDS: LOVENOX 40 MG SC (18:05)
[2024-08-14 21:30] LABS: Glucose - Point of Care 112 mg/dl (70-99)
[2024-08-14] MEDS: LIPITOR 80 MG PO (21:55)
[2024-08-14 23:07] VITALS: BP 174/82
[2024-08-15] MEDS: APRESOLINE 5 MG IV (00:12)
[2024-08-15 03:05] VITALS: BP 134/72
[2024-08-15] MEDS: BENADRYL 6.25 MG IV (03:12)
[2024-08-15 04:10] VITALS: BP 134/72
[2024-08-15 05:02] VITALS: BMI 34.4
[2024-08-15] MEDS: FLUSH (NSS) 1 FLUSH IV ×2 (05:51)
[2024-08-15] MEDS: ROCEPHIN 1000 MG IV (05:53)
[2024-08-15] MEDS: SYNTHROID 150 MCG PO (05:54)
[2024-08-15] MEDS: STERILE WATER FOR INJECTION 10 ML IV (05:54)
[2024-08-15 07:01] VITALS: BP 168/88
[2024-08-15 07:27] LABS: % Basophils 0.3 % (0-2); % Eosinophils 1.2 % (0-6); % Immature Granulocytes 0.5 % (0-0.5); % Lymphocytes 15.5 % (20.5-51.1); % Monocytes 4.9 % (1.7-9.3); % Neutrophils 77.6 % (42.2-75.2); Absolute Eosinophils 0.1 10^3/uL (0-0.7); Absolute Monocytes 0.3 10^3/uL (0.1-0.6); Hematocrit 35.8 % (37.0-47.0); Hemoglobin 12.1 g/dL (12.0-16.0); Mean Corp Hgb Conc. 33.8 g/dL (33.0-37.0); Mean Corpuscular Hgb 30.9 pg (27.0-31.0); Mean Corpuscular Volume 91.3 fL (81.0-99.0); Mean Platelet Volume 9.8 fL (7.4-10.4); Nucleated Red Blood Cells % 0 %; Platelet Count 349 10^3/uL (130-400); Red Blood Cell Count 3.92 10^6/uL (4.20-5.40); White Blood Cell Count 6.5 10^3/uL (4.8-10.8)
[2024-08-15 07:27] LABS: Glucose - Point of Care 128 mg/dl (70-99)
[2024-08-15 08:05] LABS: ALT (SGPT) 14 U/L (0-35); AST (SGOT) 18 U/L (14-36); Albumin 3.7 g/dl (3.5-5.0); Alkaline Phosphatase 87 U/L (38-126); Blood Urea Nitrogen 18 mg/dl (7-17); Calcium 8.9 mg/dl (8.4-10.2); Carbon Dioxide 27 mmol/L (22-30); Chloride 102 mmol/L (98-107); Estimated Creatinine Clearance 85 ml/min; Glucose 132 mg/dl (70-99); Potassium 3.8 mmol/L (3.5-5.1); Sodium 140 mmol/L (135-145); Total Bilirubin 1.2 mg/dl (0.2-1.3); Total Protein 6.8 g/dl (6.3-8.2); eGFR > 60.00
[2024-08-15] MEDS: NOVOLOG FLEXPEN-LOW RESISTANCE SC (08:19)
--- NOTE | 2024-08-15 08:26 | W.PN.HOSP.TC ---
Today's Communication/Plan
-
OK for DC today
Assessment / Plan
Assessment / Plan
General: no acute distress
HEENT: Anicteric, pink conjunctiva
Respiratory: Other (Coarse breath sounds bilaterally - R > L. No wheezing or rales.)
Cardiac: S1/S2, Regular Rhythm and Murmur (II/ ROSEANNA)
GI: Soft, Non Tender, Non Distended and Normal Bowel Sounds
Musculoskeletal: No Clubbing, No Cyanosis and No Edema
Neuro: AO x 3 and Other (Left sided weakness - chronic.)
CXR
IMPRESSION:
Parenchymal opacity within the left lower lung with loss of definition left hemidiaphragm, most likely pneumonia. Atelectasis could have a similar appearance.
Influenza A; acute hypoxic respiratory insufficiency secondary to flu with superimposed bacterial pneumonia
Sepsis secondary to the above
- Patient presents with fever, tachycardia, tachypnea and leukocytosis with positive Flu A assay.
-sepsis now resolved
-she is on room air
-s/p 5 days IV Ceftriaxone
-s/p 4.5 days of Doxy - complete course this evening
-s/p 4.5 days Tamiflu - complete course this evening
-OK for DC home today with HH
Lactic acidosis
Now resolved
Incontinence
Possible UTI
h/o Nephrolithiasis
- UA noted, urine culture with mixed jesse
- Abx as above should cover any additional urinary pathogens.
Renal ultrasound with moderate right pelvicalyceal dilation which appears increased compared to ultrasound of the abdomen April 03, 2022. There appears to be mild right renal parenchymal thinning.
Probable nephrolith in the upper pole the right kidney.
Patient currently has no pain or any signs of hydro. She is now feeling better. Follow-up with urology outpatient
ASCVD (CAD, CVA)
- Stable. No chest pain, new neurologic symptoms, etc.
- Continue current CV med regimen including DAPT, etc.
Benign Hypertension
- Not ideal - likely due to acute illness / stress.
- Continue current med regimen ans adjust as needed for improved control.
Diet-Controlled DM-II
- Hyperglycemia on admission likely due to acute illness / sepsis.
- Follow glucose and cover with SSI as needed.
- A1c 6.6
Hypothyroidism
- Stable. Continue T4 supplementation.
DVT Prophylaxis: Lovenox
Code Status: Full
PT/OT recommending home health
Anticipated Discharge: Today
Subjective/Interval History
-
Date of Service: August 15, 2024
feeling better
off oxygen
feels ready to go home
Objective Data
-
Labs:
Laboratory Results
08/15/24
06:41
WBC 6.5
Hgb 12.1
Hct 35.8 L
Plt Count 349
Sodium 140
Potassium 3.8
Chloride 102
Carbon Dioxide 27
BUN 18 H
Creatinine 0.8
Glucose 132 H
Calcium 8.9
Total Bilirubin 1.2
AST 18
ALT 14
Alkaline Phosphatase 87
Vital Signs:
Vital Signs
Temp Pulse Resp BP Pulse Ox
98.8 F 77 20 168/88 94
08/15/24 07:01 08/15/24 07:01 08/15/24 07:01 08/15/24 07:01 08/15/24 07:01
I&O
08/14/24 08/15/24 08/16/24
06:59 06:59 06:59
Intake Total 1559 / 0 1759
Balance 1559
Review of Systems
-
History Source: Patient
All other systems: Reviewed and negative
Physical Exam
-
General: No Apparent Distress
HEENT: Normocephalic and Atraumatic
Respiratory: Clear to Auscultation; Negative Wheezes
Cardiac: Regular Rhythm and S1/S2
Breast: Deferred by me
GI: Soft, Nontender and Nondistended
Rectal: Deferred by Provider
Genito-urinary: Deferred by me
Musculoskeletal: No Clubbing, No Cyanosis and No Edema
Skin: Warm
Neuro: Awake
Psych: Calm
Data Reviewed
-
Diagnostic Radiology: Report Reviewed by me
Labs: Labs Reviewed by me
[2024-08-15] MEDS: TAMIFLU 75 MG PO (08:30)
[2024-08-15] MEDS: PAXIL 40 MG PO (08:30)
[2024-08-15] MEDS: PROTONIX 40 MG PO (08:30)
[2024-08-15] MEDS: NORVASC 5 MG PO (08:30)
[2024-08-15] MEDS: VIBRAMYCIN 100 MG PO (08:30)
[2024-08-15] MEDS: LOW STRENGTH ASPIRIN 81 MG PO (08:30)
[2024-08-15] MEDS: PLAVIX 75 MG PO (08:30)
[2024-08-15] MEDS: MUCINEX 600 MG PO (08:30)
[2024-08-15] MEDS: WELLBUTRIN XL (24 hour extended release) 150 MG PO (08:30)
[2024-08-15] MEDS: DESENEX/MITRAZOL/ZEASORB 1 APPLIC TOPICAL (08:33)
--- NOTE | 2024-08-15 08:43 | W.DS.TRANS ---
DC Summary - Medical Physicist
-
Discharge Instructions:
Discharge Diagnosis/Procedures Acute hypoxic respiratory insufficiency
secondary to influenza A infection with
superimposed bacterial pneumonia
Lactic acidosis
Diet As tolerated
Activity As tolerated
Driving Restrictions As prior to admission
Bathing Restrictions None
Other Services VN
Instructions:
Stand-Alone Forms:
Changes to Home Medications: Yes
Discharge Medications:
DC Medications w/original date entered in [employer]
aspirin 81 mg chewable tablet 81 mg PO DAILY Blood clot prevention/tx 01/13/19
ezetimibe 10 mg tablet 10 mg PO HS High cholesterol 01/13/19
clopidogrel 75 mg tablet 75 mg PO DAILY Blood clot prevention/tx 03/03/19
atorvastatin 80 mg tablet 80 mg PO HS High cholesterol 04/07/22
paroxetine HCl 40 mg tablet 40 mg PO DAILY mental health 04/07/22
amlodipine 5 mg tablet 5 mg PO DAILY 30 days #30 tabs 04/08/22
cholecalciferol (vitamin D3) 25 mcg (1,000 unit) tablet (Vitamin D3) 25 mcg PO DAILY 05/02/22
bupropion HCl 150 mg 24 hr tablet, extended release 150 mg PO DAILY 08/11/24
levothyroxine 150 mcg tablet 150 mcg PO DAILY 08/11/24
miconazole nitrate 2 % topical powder (Miconazorb AF) 1 applic topical BID #85 grams 08/13/24
doxycycline hyclate 100 mg capsule 100 mg PO Q12 #1 cap 08/15/24
guaifenesin 600 mg tablet, extended release 12 hr 600 mg PO Q12 #28 tabs 08/15/24
oseltamivir 75 mg capsule 75 mg PO BID #1 cap 08/15/24
Home Medication Changes
One more dose of Tamiflu and Doxycycline
Pending Results: No
--- NOTE | 2024-08-15 11:02 | CM ---
Addendum entered by Jaky Rose 08/15/24 16:03:
Patient did not qualify for home 02 per respiratory
Original Note:
Patient discharged-IMM explained & signed
Order for home 02 assessment
Patient on RA currently
Jenny Larson from [facility] notified-in [facility] & accepted
CM Consult completed for VN
PLAN: Home, [facility] Fax #: [phone]
[2024-08-15 11:48] LABS: Glucose - Point of Care 244 mg/dl (70-99)
--- NOTE | 2024-08-15 13:07 | W.DCSUMMARY ---
Discharge Summary
Discharge Data
Date of Admission: 08/11/24
Date of Discharge: 08/15/24
-
Pending Results: No
Hospital Course
Discharging Physician : Dr. Surekha Yeager
Disposition : Home with Home Health
Primary care physician : Dr. Parmjit Dias
Principal Discharge diagnosis :
Influenza A
Superimposed Bacterial Pneumonia
Hypoxic Respiratory Insufficiency 2/2 Above
Hospital Course :
Patient is a 63y F with PMH significant for ASCVD, prior CVA and hypertension who presents to ED complaining of cough, weakness and chills. Triage VS: T 99.6, P 116, SpO2 88% RA. Labs with WBC 14.8. Influenza A positive. CXR with e/o left
lower lung pneumonia. She was admitted to medicine for treatment of hypoxic respiratory insufficiency in setting of Influenza with superimposed bacterial pneumonia. She was started on Tamiflu, Ceftriaxone and Doxycycline. Over the next several
days symptoms improved and she was weaned off Oxygen. She completed 5 doses of IV Ceftriaxone in-house and will complete 5 days of Doxycycline and Tamiflu after final dose taken this evening. She felt ready for discharge.
Time spent on discharge was 32 minutes.
Important imaging findings :
CXR
IMPRESSION:
Parenchymal opacity within the left lower lung with loss of definition left hemidiaphragm, most likely pneumonia. Atelectasis could have a similar appearance.
Procedure findings :
Discharge Plan
-
Patient Disposition: Home with Home Care
Discharge Diagnosis/Procedures: Acute hypoxic respiratory insufficiency secondary to influenza A infection with superimposed bacterial pneumonia
Lactic acidosis
Diet: As tolerated
Activity: As tolerated
Driving Restrictions: As prior to admission
Bathing Restrictions: None
Other Services: VN
Referrals:
Parmjit Dias, DO [Family Provider] - in less than 1 week
Additional Discharge Medication Instructions: You have one more dose of Doxycycline (antibiotic) and Tamiflu (antiviral) to take this evening.
Prescriptions:
New
miconazole nitrate [Miconazorb AF] 2 % Powder
1 applic topical BID Qty: 85 0RF
doxycycline hyclate 100 mg Capsule
100 mg PO Q12 Qty: 1 0RF
Rx Instructions:
Last pill this evening, 08/15
oseltamivir 75 mg Capsule
75 mg PO BID Qty: 1 0RF
Rx Instructions:
last dose this evening
guaifenesin 600 mg Tablet Extended Release 12hr
600 mg PO Q12 Qty: 28 0RF
Continued
ezetimibe 10 MG tablet
10 mg PO HS
aspirin 81 MG tablet,chewable
81 mg PO DAILY
clopidogrel 75 MG tablet
75 mg PO DAILY
atorvastatin 80 mg tablet
80 mg PO HS
paroxetine HCl 40 mg tablet
40 mg PO DAILY
amlodipine 5 mg Tablet
5 mg PO DAILY 30 Days Qty: 30 0RF
cholecalciferol (vitamin D3) [Vitamin D3] 25 mcg (1,000 unit) Tablet
25 mcg PO DAILY
bupropion HCl 150 mg Tablet Extended Release 24 Hr
150 mg PO DAILY
levothyroxine 150 mcg Tablet
150 mcg PO DAILY
Discharge Orders:
Discharge Patient (As Directed); Ordered 08/15/24
Ordered By: Surekha Yeager
Discharge Date and Time
Print Language: [place]
[2024-08-15] MEDS: NOVOLOG FLEXPEN-LOW RESISTANCE 2 UNITS SC (13:36)
[2024-08-15 13:42] VITALS: BP 163/80
--- NOTE | 2024-08-15 15:44 | PTCARENOTE ---
pt discharged home with son this afternoon. instructions done at bedside. pt refused hygiene for this nurse and pct this shift. states will wash up at home. IV access discontinued.
== END 2024-08-15 16:05 | disposition home health service (06) | DRG 871 ==
LOC: 2 NORTH 04:48
PROVIDERS: Internal Medicine; ADMITTING PHYSICIAN Hospitalist; ATTENDING PHYSICIAN Student in an Organized Health Care Education/Training Program; EMERGENCY PHYSICIAN Emergency Medicine; FAMILY PHYSICIAN Family Medicine
DX: A41.9 Sepsis, unspecified organism (principal); J10.08 Influenza due to other identified influenza virus with other specified pneumonia; J15.9 Unspecified bacterial pneumonia; I69.354 Hemiplegia and hemiparesis following cerebral infarction affecting left non-dominant side; E87.20 Acidosis, unspecified; N39.0 Urinary tract infection, site not specified; R06.89 Other abnormalities of breathing; R09.02 Hypoxemia; I10 Essential (primary) hypertension; I25.10 Atherosclerotic heart disease of native coronary artery without angina pectoris; E66.9 Obesity, unspecified; Z68.34 Body mass index [BMI] 34.0-34.9, adult; E11.65 Type 2 diabetes mellitus with hyperglycemia; E03.9 Hypothyroidism, unspecified; Z87.442 Personal history of urinary calculi; Z85.42 Personal history of malignant neoplasm of other parts of uterus; Z95.5 Presence of coronary angioplasty implant and graft; Z96.652 Presence of left artificial knee joint; Z87.891 Personal history of nicotine dependence; Z79.890 Hormone replacement therapy; Z79.82 Long term (current) use of aspirin; E78.00 Pure hypercholesterolemia, unspecified; F32.A Depression, unspecified; G89.29 Other chronic pain; I44.7 Left bundle-branch block, unspecified; Z79.84 Long term (current) use of oral hypoglycemic drugs; Z79.899 Other long term (current) drug therapy; Z79.02 Long term (current) use of antithrombotics/antiplatelets; Z11.52 Encounter for screening for COVID-19
CPT/HCPCS: 71046; 76770; 80048; 80053; 81003; 81015; 82962; 83036; 83605; 85025; 85027; 86803; 87040; 87070; 87086; 87502; 87811; 93005; 94640; 96360; 97162; 97166; 97530; 99291

== ENCOUNTER 2025-04-23 16:18 | Emergency (ER) | payer MEDICARE, SELFPAY ==
[2025-04-23 16:21] VITALS: BP 145/76
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
[2025-04-23 18:00] VITALS: BP 146/71
[2025-04-23 18:32] LABS: Urine Character Cloudy (Clear)
[2025-04-23 18:35] LABS: Hematocrit 37.0 % (37.0-47.0); Hemoglobin 12.7 g/dL (12.0-16.0); Mean Corp Hgb Conc. 34.3 g/dL (33.0-37.0); Mean Corpuscular Volume 91.8 fL (81.0-99.0); Nucleated Red Blood Cells % 0 %; Platelet Count 230 10^3/uL (130-400); Red Cell Dist. Width 12.8 % (11.5-14.5)
[2025-04-23 18:39] LABS: Urine White Cell >100 /HPF (0-5)
[2025-04-23 18:57] LABS: ALT (SGPT) 33 U/L (0-35); AST (SGOT) 23 U/L (14-36); Albumin 3.7 g/dl (3.5-5.0); Alkaline Phosphatase 105 U/L (38-126); Blood Urea Nitrogen 19 mg/dl (7-17); Calcium 8.8 mg/dl (8.4-10.2); Carbon Dioxide 31 mmol/L (22-30); Chloride 104 mmol/L (98-107); Glucose 225 mg/dl (70-99); Potassium 4.2 mmol/L (3.5-5.1); Sodium 140 mmol/L (135-145); Total Protein 6.8 g/dl (6.3-8.2); eGFR > 60.00
[2025-04-23] MEDS: KEFLEX 500 MG PO (19:44)
[2025-04-24 09:02] LABS: Glycohemoglobin (HgbA1c) 7.8 % (4.0-5.6)
== END 2025-04-23 20:30 | disposition home or self-care (01) ==
LOC: EMR 16:18
PROVIDERS: Registered Nurse; EMERGENCY PHYSICIAN Emergency Medicine
DX: N39.0 Urinary tract infection, site not specified (principal); F32.A Depression, unspecified; I10 Essential (primary) hypertension; E78.00 Pure hypercholesterolemia, unspecified; E11.51 Type 2 diabetes mellitus with diabetic peripheral angiopathy without gangrene; G35 Multiple sclerosis; Z86.73 Personal history of transient ischemic attack (TIA), and cerebral infarction without residual deficits; Z87.440 Personal history of urinary (tract) infections; Z87.442 Personal history of urinary calculi; Z95.0 Presence of cardiac pacemaker
CPT/HCPCS: 99283; 80053; 81003; 81015; 83036; 85025; 87077; 87086; 87186

== ENCOUNTER 2025-05-04 00:41 | Inpatient (IN) | payer MEDICARE, SELFPAY ==
[2025-05-03 18:33] VITALS: BP 173/80
[2025-05-03 19:08] LABS: Hematocrit 42.3 % (37.0-47.0); Hemoglobin 14.6 g/dL (12.0-16.0); Mean Corp Hgb Conc. 34.5 g/dL (33.0-37.0); Mean Corpuscular Volume 92.6 fL (81.0-99.0); Nucleated Red Blood Cells % 0 %; Platelet Count 256 10^3/uL (130-400); Red Cell Dist. Width 12.8 % (11.5-14.5)
[2025-05-03 19:33] LABS: ALT (SGPT) 35 U/L (0-35); AST (SGOT) 24 U/L (14-36); Albumin 4.3 g/dl (3.5-5.0); Alkaline Phosphatase 117 U/L (38-126); Blood Urea Nitrogen 21 mg/dl (7-17); Calcium 9.5 mg/dl (8.4-10.2); Carbon Dioxide 30 mmol/L (22-30); Chloride 101 mmol/L (98-107); Glucose 214 mg/dl (70-99); Lipase 52 U/L (23-300); Potassium 4.3 mmol/L (3.5-5.1); Sodium 135 mmol/L (135-145); Total Protein 7.8 g/dl (6.3-8.2); eGFR > 60.00
[2025-05-03 22:36] LABS: Urine Character Cloudy (Clear)
[2025-05-03 22:43] LABS: Urine Squamous Cell 0-2 /LPF (Few); Urine White Cell >100 /HPF (0-5)
[2025-05-03 23:06] VITALS: BP 172/76
--- NOTE | 2025-05-03 23:19 | ED.GENMED ---
History of Present Illness
General
Chief Complaint: Abdominal Pain
Source: patient and family (son)
Exam Limitations: none
Time Seen by Provider: 05/03/25 21:02
Nursing documentation reviewed up to this point in time: agreed with
History of Present Illness
History of Present Illness:
Patient to ED with complaint of n/v, lower abd. pain. Symptoms started yesterday and continue to worsen. Denies fever chillls. Brought to ED by EMS for eval. Son states she was evaluated in ED 04/23, dx with UTI. She finished antibiotic 2 days
ago.
Past History
Past History
ED Past Medical History: Arrthythmia, CVA, HTN, Hypercholesterolemia, NIDDM (Diet controlled), Hypothyroidism, Psychiatric (Depression) and Other (Chronic low back pain, MS; kidney stones, UTIs. Previous hospitalization 2021 for kidney stone
accompanied with UTI/sepsis.)
ED Past Surgical History: Cardiac, Gynecological, Orthopedic and Other (Thyroid)
Social History
Tobacco: Non-smoker
Alcohol: None
Drug: None
Personal: Single
Living: with family (Resides with her sister)
Employment: Disabled
Family History
Family History: Other (Noncontributory)
Review of Systems
Review of Systems
Allergies reviewed?: Yes
All Other Systems: ROS reviewed and negative except as documented in HPI and ROS
Constitutional: Reports no symptoms
EENT: Reports no symptoms
Respiratory: Reports no symptoms
Cardiac: Reports no symptoms
ABD/GI: Reports abdominal pain, nausea, vomiting and anorexia
: Reports no symptoms
Musculoskeletal: Reports no symptoms
Skin: Reports no symptoms
Neurological: Reports no symptoms
Psychiatric: Reports no symptoms
Phy Exam
General Physical Exam
General Presentation: moderate distress
General age: appears stated age
General Skin: warm and dry
General Habitus: normal
General Mental: alert
Cardiovascular Exam
Cardiovascular Exam: regular rate/rhythm and no edema
Pulmonary Exam
Pulmonary Exam: lungs clear and no respiratory distress
Gastrointestinal Exam
Gastrointestinal Exam: normal bowel sounds, soft, no organomegaly, no pulsatile mass, non distended and no cva tenderness
Palpation: left upper quadrant: No tenderness, left lower quadrant: Moderate tenderness, right upper quadrant: No tenderness and right lower quadrant: Moderate tenderness
Musculoskeletal Exam
Musculoskeletal Exam: full ROM and neuro vasc intact
Skin Exam
Skin Exam: normal color, warm/dry and no rash
Psychiatric Exam
Psychiatric Exam: normal mood/affect
Course
Orders/Labs/Results
Orders:
Orders
05/03/25 18:32
Electrocardiogram (*1) Urgent
Reason for Study: Abdominal Pain
EKG- Treatment ONCE
05/03/25 19:00
Complete Blood Count/With Diff Urgent
Comprehensive Metabolic Panel Urgent
Lipase Urgent
05/03/25 19:37
CT Abd/pel Without Iv Or Oral Urgent
Comment:
Reason For Exam: uti
05/03/25 22:26
Urinalysis Reflex To Culture Urgent
Date Specimen was Collected: 05/03/25
Time Specimen was Collected: 18:32
Urine Microscopic Reflex Cult Urgent
Urine Culture Urgent
EMMETT Source: U
Specimen Description:
Date Specimen was Collected: 05/03/25
Time Specimen was Collected: 18:32
05/03/25 23:19
Cefepime HCl [Maxipime] 2,000 mg IV NOW STA
05/03/25 23:47
0.9% Sodium Chloride 1000 ml [Nss] 1,000 ml IV BOLUS
05/04/25 00:33
Admit/Transfer Patient As Directed
Co-Sign Provider:
Level of Care: Inpatient admission
Assign to:: Medical/Surgical
Physician / Group: Tori
Diagnosis: pyelonephritis
Reason for Hospitalization: pyelonephritis
Expected length of stay greater than two midnights?: Yes
ELOS- Estimated Length of Stay in days: 2
I certify the patient meets the requirements for IP care: Yes
PRN Pain Medication Management As Directed
May give lesser potent ordered pain med per pt: Yes
preference::
Protocol:: Medication orders for pain may be administered in a
manner that supports deferring to patient preference
when the pt is:
- Requesting an ordered lesser potent pain medication.
Least to most potent pain medications are defined
as: acetaminophen < NSAID < tramadol < opioids
(morphine, oxycodone, hydromorphone).
- Requesting a lesser dose of the same medication IF
ORDERED.
- Requesting a less intrusive route of administration
if both routes are prescribed by the provider (PO <
IV).
05/04/25 00:34
Code Status As Directed
Resuscitation Status: Full Code
05/04/25 01:05
0.9% Sodium Chloride 1000 ml [Nss] 1,000 ml IV 100 mls/hr
Acetaminophen [Tylenol] 650 mg PO Q4HPRN PRN
Bisacodyl [Dulcolax] 10 mg RECTAL [id number] PRN
Docusate W/Senna [Senokot-S] 1 tablet PO BIDPRN PRN
HYDROmorphone [Dilaudid] 0.5 mg IV Q4HPRN PRN
Ondansetron Injectable [Zofran] 4 mg IV Q6HPRN PRN
Oxycodone [Roxicodone] 5 mg PO Q4HPRN PRN
Polyethylene Glycol Powder [Miralax] 17 grams PO DAILYPRN PRN
05/04/25 01:05
Activity As Directed
Activity Level: With Assistance
Pneumatic Compression Sleeves As Directed
Type: Knee high
Vital Signs As Directed
Frequency: Per unit guidelines
DX Deep Vein Thrombosis Video Routine
05/04/25 05:38
Basic Metabolic Panel IN AM
Complete Blood Count/No Diff IN AM
Magnesium IN AM
05/04/25 06:00
Cefepime HCl [Maxipime] 1,000 mg IV Q6H
Levothyroxine [Synthroid] 150 mcg PO DAILY @ 0600
05/04/25 08:00
Amlodipine [Norvasc] 5 mg PO DAILY
Aspirin Chewable [Low Strength Aspirin] 81 mg PO DAILY
Bupropion(24Hr)Extended Releas [WELLBUTRIN XL (24 hour extended release)] 150 mg PO DAILY
Clopidogrel Bisulfate [Plavix] 75 mg PO DAILY
Heparin 5,000 units SC Q8
Paroxetine [Paxil] 40 mg PO DAILY
05/04/25 22:00
Atorvastatin [Lipitor] 80 mg PO HS
Ezetimibe [Zetia] 10 mg PO HS
Abnormal Lab Results
05/03/25 05/03/25
19:00 22:26
WBC 16.5 H 10^3/uL
(4.8-10.8)
MCH 31.9 H pg
(27.0-31.0)
Abs Immat Gran (auto) 0.1 H 10^3/uL
(0-0.05)
Absolute Neuts (auto) 14.7 H 10^3/uL
(1.4-6.5)
Absolute Lymphs (auto) 0.9 L 10^3/uL
(1.2-3.4)
Absolute Monos (auto) 0.8 H 10^3/uL
(0.1-0.6)
Neutrophils % 89.0 H %
(42.2-75.2)
Lymphocytes % 5.3 L %
(20.5-51.1)
BUN 21 H mg/dl
(7-17)
Glucose 214 H mg/dl
(70-99)
Total Bilirubin 3.3 H mg/dl
(0.2-1.3)
Ur Occult Blood Reflex 4+ A
(Negative)
Leukocyte Esterase Rfl 3+ A
(Negative)
Urine WBC (Reflex) >100 A /HPF
(0-5)
Urine Bacteria (Reflex) Moderate A
(Negative)
Urine Albumin (Reflex) 3+ A
(Neg - Trace)
05/03/25 19:00
05/03/25 19:00
Vital Signs
Initial and Last Documented VS:
Initial Vital Signs
Temp Pulse Resp BP Pulse Ox
99.8 F 96 16 173/80 96
05/03/25 18:33 05/03/25 18:33 05/03/25 18:33 05/03/25 18:33 05/03/25 18:33
Last Documented Vital Signs
Temp Pulse Resp BP Pulse Ox
97.9 F 76 18 155/65 96
05/04/25 14:51 05/04/25 11:38 05/04/25 11:38 05/04/25 13:00 05/04/25 11:38
*Radiology
Radiology exam reviewed: radiology read reviewed
*Pulse Oximetry
SaO2: 95
Oxygen Mode of Delivery: Room air
Patient hypoxic: no
*Critical Care Note
Total Time (30-74mins, 75-104mins- exclusive of procedures): Not Applicable
Update Note
Update Note:
Patient to ED with n/v, lower abd pain x 24 hours. VSS, she remains afebrile. Labs reviewed. WBC 16.5. UA confirms UTI. CT abd/pelvis reviewed. RIght eneal pelvis and ureter dilation, calcification within the ureter or along the wall of the
ureter noted, could contribute to obstruction. Superimposed infection could not be excluded. Will admit to hospitalist. IV antibiotics started in ED. Dr. Munoz notified.
ED Attending Note
-
Portions of this chart may have been created with voice recognition software.� Occasional wrong word or��sound alike� substitutions may have occurred due to the inherent limitations of voice recognition software.
Discharge Plan
Departure
Patient Disposition: Admit
Date of Disposition: 05/03/25
Time of Disposition: 23:34
Presentation/result/management discussed w/ accepting MD/DO: Hospitalist
Patient with high blood pressure during this ER visit?: Yes
Condition: Fair
Covid-19: Not Applicable
Discharge Problem:
Acute pyelonephritis, Renal calculi
Interventions
Interventions:
*Risk Screen - Suicide Last Done: 05/03/25 18:33
*General Assessment Last Done: 05/04/25 08:34
*Neglect/Abuse Screening Last Done: 05/03/25 18:33
*ED COVID-19 Vaccine History Last Done: 05/03/25 22:33
*ED Influenza Vaccine History Last Done: 05/03/25 22:33
WY-Lgyorw-Rdlasntmrj Assessment Last Done: 05/03/25 22:29
[2025-05-04] VITALS (10 sets, daily range): BP systolic 107–184; BP diastolic 63–85
[2025-05-04] MEDS: NSS 1000 IV ×4 (00:20→23:07)
[2025-05-04] MEDS: MAXIPIME 2000 MG IV (00:21)
--- NOTE | 2025-05-04 00:21 | HPS.HSE ---
Family Physician
-
Family Physician: Parmjit Dias
Chief Complaint
-
Abdominal pain
History of Present Illness
This is a 64-year-old female with past medical history significant for thyroid cancer, hypertension, hypothyroid, CVA, type 2 diabetes, hyperlipidemia, renal artery stenosis, history of Graves' disease, CAD, MS, status post cardiac pacemaker
presenting to the Emergency Department with 1 day of nausea vomiting and abdominal pain.
She reports onset of symptoms 1 day ago with nausea vomiting and abdominal pain which is localized to the lower abdomen bilaterally. She denied having any fevers or chills. She denies urinary symptoms. She was evaluated in the ED about 10 days
ago and diagnosed with UTI. She finished a course of antibiotics 2 days ago. Culture showed pansensitive E. coli.
In the emergency department patient was afebrile, blood pressure was 176/76 with a pulse rate of 96 and was satting 98% on room air.
White count was 16.5, hemoglobin 14.6 platelet 256. Electrolytes BUN and creatinine were normal. Total bilirubin slightly elevated at 3.3. UA with marked positivity including leukocyte esterase WBCs and moderate bacteria.
CT of the abdomen pelvis showing moderate to severe right calyceal dilation. Moderate dilation of the right renal pelvis and right ureter, with transition in ureteral caliber 3.6 cm superior to the right ureterovesical junction. At this transition
point, there are 2 tiny calcifications either within the right ureter or along the posterior wall the right ureter. See above discussion. Superimposed infection cannot be excluded.
Medical History
Past Medical History
Past Medical History: Reports Other
Additional Past Medical History:
ASCVD / CVA
Hypertension
Obesity
Diet-Controlled DM-II
Hypothyroidism
Nephrolithiasis
Uterine Cancer
Past Surgical History: Reports Other
Additional Past Surgical History:
PTCA with Stent
PPM Placement
DRAKE / BSO
Left TKA
Ureteroscopy with Stent
Social History
Tobacco: Former Smoker (Quit smoking > 30 years ago.)
Alcohol: None
Drug: None
Living: With Family
Family History
Family History: Not pertinent
Allergies / Home Medications
Allergies reflects when Allergies were last updated in [facility].
Home Medications with original date entered in [facility]
Allergy/Medication List:
Allergies
Allergy/AdvReac Type Severity Reaction Status Date / Time
No Known Allergies Allergy Verified 08/11/24 00:44
Home Medications
aspirin 81 mg chewable tablet 81 mg PO DAILY Blood clot prevention/tx 01/13/19
ezetimibe 10 mg tablet 10 mg PO HS High cholesterol 01/13/19
clopidogrel 75 mg tablet 75 mg PO DAILY Blood clot prevention/tx 03/03/19
atorvastatin 80 mg tablet 80 mg PO HS High cholesterol 04/07/22
paroxetine HCl 40 mg tablet 40 mg PO DAILY mental health 04/07/22
amlodipine 5 mg tablet 5 mg PO DAILY 30 days #30 tabs 04/08/22
cholecalciferol (vitamin D3) 25 mcg (1,000 unit) tablet (Vitamin D3) 25 mcg PO DAILY 05/02/22
bupropion HCl 150 mg 24 hr tablet, extended release 150 mg PO DAILY 08/11/24
levothyroxine 150 mcg tablet 150 mcg PO DAILY 08/11/24
Review of Systems
-
Constitutional: Reports No Symptoms
EENT: Reports No Symptoms
Respiratory: Reports No Symptoms
Cardiac: Reports No Symptoms
Abdomen/GI: Reports Abdominal Pain, Nausea and Vomiting
: Reports No Symptoms
Musculoskeletal: Reports No Symptoms
Skin: Reports No Symptoms
Neurological: Reports No Symptoms
Endocrine: Reports No Symptoms
Hematologic/Lymphatic: Reports No Symptoms
Psych: Reports No Symptoms
Physical Exam
Vital Signs
Vital Signs
Temp Pulse Resp BP Pulse Ox
99.8 F 96 16 176/76 94
05/03/25 18:33 05/03/25 18:33 05/03/25 18:33 05/04/25 00:00 05/04/25 00:00
Physical Exam
General: Well Developed, Well Nourished, No Apparent Distress and Other
HEENT: NormoCephalic, Anicteric, Moist mucous membranes and Atraumatic
Respiratory: Clear
Cardiac: S1/S2, Regular Rhythm and Murmur (II/ ROSEANNA)
GI: Soft, Non Tender, Non Distended and Normal Bowel Sounds
Rectal: Deferred by Provider
Genito-urinary: Deferred by me
Musculoskeletal: No Clubbing, No Cyanosis and No Edema
Neuro: AO x 3 and Other (Left sided weakness - chronic. No new focal deficits.)
Hematologic/Lymphatic: No Lymphadenopathy
Psych: Calm
Laboratory Results
-
05/03/25 19:00
05/03/25 19:00
Laboratory Results
Total Bilirubin 3.3 mg/dl (0.2-1.3) H 05/03/25 19:00
AST 24 U/L (14-36) 05/03/25 19:00
ALT 35 U/L (0-35) 05/03/25 19:00
Alkaline Phosphatase 117 U/L (38-126) 05/03/25 19:00
Lipase 52 U/L (23-300) 05/03/25 19:00
Data Reviewed
-
CT Scan: Report Reviewed by me
Medical Tests (Nuc Med, Echo, EKG etc): Image Personally Visualized and interpreted
Lab Data: Labs Reviewed by me
Old Records: Reviewed
Impression/Plan
-
IMPRESSION:
60-year-old female with past medical history significant for CVA, hypertension, hyperlipidemia, CAD, hypothyroid, depression presenting to the emergency department with abdominal pain nausea vomiting found to have obstructing right nephrology here
at urolithiasis. She has peripheral leukocytosis, positive UA for infection and possible infection on the CT scan. The CT scan shows a moderate to severe right calyceal dilation and moderate dilation of the right renal pelvis extending into the
pelvis, with caliber transition 3.7 cm superior to the right ureterovesical junction. At this transition point, there are 2 tiny calcifications either within the right ureter or along the posterior wall the right ureter. Possible etiology of
dilation possibly stricture versus stone.
PLAN:
Pyelonephritis with moderate to severe right calyceal dilation and no hydronephrosis. Renal function is preserved. There is hydroureter. Patient does have systemic signs of infection with leukocytosis and a positive UA but is nonseptic. She is
afebrile.
-Admit to [facility]
-Urine cultures,
-IV cefepime started in ED, continue for now given recent antibiotics for E. coli UTI
-Pain control, antiemetics, gentle hydration for now
-Unclear if patient will be an immediate candidate for decompressive procedure, urology consulted and aware
-N.p.o. after midnight, can restart diet if no procedure planned
History of CVA
-Continue aspirin, Plavix and statin and ezetimibe
-Continue antihypertensive amlodipine
Hypothyroid
- Continue levothyroxine 150 mcg daily
DVT prophylaxis�SCDs for now pending urology evaluation
CODE STATUS�full code
[2025-05-04] MEDS: MAXIPIME 1000 MG IV ×3 (05:32→17:14)
[2025-05-04] MEDS: STERILE WATER FOR INJECTION 10 ML IV ×3 (05:33→17:14)
[2025-05-04] MEDS: SYNTHROID 150 MCG PO (05:34)
[2025-05-04 05:59] LABS: Hematocrit 38.6 % (37.0-47.0); Hemoglobin 13.4 g/dL (12.0-16.0); Mean Corp Hgb Conc. 34.7 g/dL (33.0-37.0); Mean Corpuscular Volume 92.1 fL (81.0-99.0); Platelet Count 211 10^3/uL (130-400); Red Cell Dist. Width 13.2 % (11.5-14.5)
[2025-05-04 06:13] LABS: Blood Urea Nitrogen 22 mg/dl (7-17); Calcium 8.7 mg/dl (8.4-10.2); Carbon Dioxide 28 mmol/L (22-30); Chloride 105 mmol/L (98-107); Glucose 189 mg/dl (70-99); Magnesium 1.6 mg/dl (1.6-2.3); Potassium 4.1 mmol/L (3.5-5.1); Sodium 139 mmol/L (135-145); eGFR > 60.00
[2025-05-04] MEDS: LOW STRENGTH ASPIRIN 81 MG PO (08:32)
[2025-05-04] MEDS: HEPARIN 5000 UNITS SC ×2 (08:32→17:13)
[2025-05-04] MEDS: NORVASC 5 MG PO (08:32)
[2025-05-04] MEDS: PLAVIX 75 MG PO (08:33)
[2025-05-04] MEDS: WELLBUTRIN XL (24 hour extended release) 150 MG PO (08:33)
--- NOTE | 2025-05-04 09:05 | W.PN.URO.CBU ---
Today's Communication / Plan
-
iv abs today may eat npo midnight fr thursday
Assessment / Plan
-
uti and chronic rt hydro with acute perinephric stranding will start iv abs and then thursday plan rt ureteroscopy and if stone remove other bynum dilate rt ureteral stricture and leave stent
Diagnosis
-
Date of Service: May 04, 2025
-
Patient Diagnosis:uti and rt hydronephrosois
Post Op Day:
Subjective
-
less pain no fevr chills
Objective
-
Vital Signs
Temp Pulse Resp BP Pulse Ox
99.8 F 81 18 167/85 95
05/04/25 08:31 05/04/25 08:32 05/04/25 08:31 05/04/25 08:32 05/04/25 08:31
Intake and Output
05/03/25 05/04/25 05/05/25
06:59 06:59 06:59
Output Total 600 / 600
Balance -600 / -600
Output:
Urine, Voided 600 / 600
Laboratory Results
05/04/25 05:38
05/04/25 05:38
Review of Systems
-
Abdomen/GI: Abdominal Pain
: Frequency
Physical Exam
-
General - well developed, well nourished, no acute distress
Chest - clear bilaterally
Abdomen - soft, non-tender, positive bowel sounds, no CVAT, no incisional pain or distention
Genitalia - normal
Rectal - normal
Skin - warm & dry with no rash
Neuro - AOx3, no motor deficits
Extremities - no clubbing, no cyanosis, no edema
Incision - clean, dry
Dressing - clean, dry, intact
Counseling
-
may eat
Care Review
Data Reviewed
Discussed with: Nursing
CT Scan: Image Pers Reviewed
[2025-05-04] MEDS: PAXIL 40 MG PO (11:35)
--- NOTE | 2025-05-04 12:49 | ED.ADDNOTE ---
ED Addendum
ED Addendum
ED Addendum Note:
pt now on ip schedule for sat 11th as on plavix npo fri for sat am
--- NOTE | 2025-05-04 14:43 | W.PN.HOSP.TC ---
Today's Communication/Plan
-
Assessment / Plan
Assessment / Plan
General: No Apparent Distress, Comfortable and Conversant
HEENT: NormoCephalic, Moist mucous membranes, Atraumatic
Respiratory: Clear and Non Labored Respirations
Cardiac: S1/S2 and Regular Rhythm; No Rub or Gallop
GI: Soft, Non Tender, Non Distended and Normal Bowel Sounds
Musculoskeletal: No Edema, no deformity
Skin: Warm and dry
: NO Carter
Neuro: Awake, Alert, Nonfocal/grossly intact
Psych: Calm and Intact Judgment/Insight
Ms. Mcclure is a 64-year-old female with a medical history of hypertension, Graves' disease, thyroid cancer, acquired hypothyroidism, CVA, renal artery stenosis, MS, CAD, and pacemaker placement who presented with right flank pain with nausea and
vomiting. She was found to have leukocytosis of just over 16,000 and urinalysis with pyuria and bacteria. CT imaging showed stricture versus impacted stone in the distal right ureter with proximal hydroureteronephrosis and possible infection. She
was started on antibiotics with cefepime and has been admitted for further evaluation and management of suspected pyelonephritis with ureteral stricture versus stone impaction.
Right-sided pyelonephritis:
- With associated stricture of the distal right ureter versus impacted stone
- Continuing antibiotics with cefepime, follow-up cultures
- IV fluids
- Holding Plavix, planning OR on Thursday with urology
- Regular diet for now, n.p.o. after midnight Thursday into Thursday
Hypertension:
- Continue home amlodipine 5 mg daily
Cerebrovascular disease:
- History of stroke
- Continue aspirin and statin
- Holding Plavix for OR on Thursday
Acquired hypothyroidism:
- Continue home Synthroid 150 mcg daily
DVT prophylaxis: Subcu heparin
CODE STATUS: Full code
Anticipated Discharge: > 48 hours
Subjective/Interval History
-
Date of Service: May 04, 2025
Patient was seen and examined at bedside this morning. No acute distress. Currently comfortable after pain medications. Continuing antibiotics and holding Plavix. Planning OR with urology on Thursday.
Objective Data
-
Labs:
Laboratory Results
05/04/25
05:38
WBC 14.4 H
Hgb 13.4
Hct 38.6
Plt Count 211
Sodium 139
Potassium 4.1
Chloride 105
Carbon Dioxide 28
BUN 22 H
Creatinine 0.9
Glucose 189 H
Calcium 8.7
Vital Signs:
Vital Signs
Temp Pulse Resp BP Pulse Ox
99.8 F 76 18 155/63 96
05/04/25 08:31 05/04/25 11:38 05/04/25 11:38 05/04/25 12:00 05/04/25 11:38
I&O
05/03/25 05/04/25 05/05/25
06:59 06:59 06:59
Output Total 600 / 600
Balance -600 / -600
Review of Systems
-
History Source: Patient
All other systems: Reviewed and negative
Physical Exam
-
General: No Apparent Distress
--- NOTE | 2025-05-04 17:15 | EDCM ---
CM reviewed chart and met with pt bedside in ED. Lives with her sister, son and his in 2 story home, has first floor set up with full bath.
Needs assistance with ADLs and personal care, ambulates with RW. Also has cane, shower chair, raised toilet seat and commode. Did not qualify for home O2 on last admission in 07/2024.
Confirms prescription coverage.
Hx [facility], also hx [facility] and [facility] in past.
PCP: Parmjit Dias
Pharmacy: [facility]
CM will continue to follow for all discharge planning needs.
--- NOTE | 2025-05-04 19:30 | PTCARENOTE ---
Spoke with son Reece, meds were reviewed. Son reports that plavix was stopped months ago by Cassandra ROSE. Med list updated in EMR.
[2025-05-04] MEDS: ZETIA 10 MG PO (23:06)
[2025-05-04] MEDS: LIPITOR 80 MG PO (23:06)
[2025-05-05] VITALS (10 sets, daily range): BP systolic 144–187; BP diastolic 61–84; BMI 36.7
[2025-05-05] MEDS: HEPARIN 5000 UNITS SC ×4 (00:26→23:00)
[2025-05-05] MEDS: STERILE WATER FOR INJECTION 10 ML IV ×5 (00:26→23:01)
[2025-05-05] MEDS: MAXIPIME 1000 MG IV ×5 (00:27→23:00)
--- NOTE | 2025-05-05 05:20 | PTCARENOTE ---
Pt transferred from ED to room 430. AAOx3, no complaints of pain. NSS infusing at 100 mL/hr per order. Bed alarm in place. Pt oriented to room, call larsen in reach with bed in lowest position.
[2025-05-05] MEDS: SYNTHROID 150 MCG PO (06:37)
[2025-05-05] MEDS: WELLBUTRIN XL (24 hour extended release) 150 MG PO (10:23)
[2025-05-05] MEDS: LOW STRENGTH ASPIRIN 81 MG PO (10:23)
[2025-05-05] MEDS: PAXIL 40 MG PO (10:23)
[2025-05-05] MEDS: NORVASC 5 MG PO (10:23)
[2025-05-05] MEDS: NSS 1000 IV ×2 (10:24→20:54)
--- NOTE | 2025-05-05 11:43 | CM ---
Chart reviewed and plan is that patient is for possible OR procedure with Urology tomorrow, immigration case manager will follow with progress after OR.
Plan; To follow with patient progress and assist with discharge planning.
--- NOTE | 2025-05-05 13:05 | W.PN.URO.CBU ---
Today's Communication / Plan
-
op room am sat npo
Assessment / Plan
-
uti and chronic rt hydro with acute perinephric stranding will start iv abs and then sat 05/06 08 plan rt ureteroscopy and if stone remove other bynum dilate rt ureteral stricture and leave stent
Diagnosis
-
Date of Service: May 05, 2025
-
Patient Diagnosis:
Post Op Day:
Patient Diagnosis:uti and rt hydronephrosois
Post Op Day:
Subjective
-
les pain with iv abs
Objective
-
Vital Signs
Temp Pulse Resp BP Pulse Ox
98.2 F 71 18 154/73 95
05/05/25 07:20 05/05/25 10:23 05/05/25 07:20 05/05/25 10:23 05/05/25 07:20
Intake and Output
05/04/25 05/05/25 05/06/25
06:59 06:59 06:59
Intake Total 440 / 440
Output Total 600 / 600
Balance -160 / -160
Intake:
Oral fluids 240 / 240
IV fluids (Total) 200 / 200
Output:
Urine, Voided 600 / 600
Other:
How many times incontinent 1
SATURATED amount urine
Laboratory Results
05/04/25 05:38
05/04/25 05:38
Review of Systems
-
Abdomen/GI: Abdominal Pain
: Dysuria
Physical Exam
-
General - well developed, well nourished, no acute distress non toxic
Chest - clear bilaterally
Abdomen - soft, non-tender, positive bowel sounds, no CVAT, no incisional pain or distention
Genitalia - normal
Rectal - normal
Skin - warm & dry with no rash
Neuro - AOx3, no motor deficits
Extremities - no clubbing, no cyanosis, no edema
Incision - clean, dry
Dressing - clean, dry, intact
Care Review
Data Reviewed
Discussed with: Hospitalist and Nursing
--- NOTE | 2025-05-05 13:59 | W.PN.HOSP.TC ---
Addendum entered and electronically signed by Theodore Marques DO 05/05/25 14:15:
Revised cardiac risk index score of 2 points which equates to 5% risk of major cardiac event, will obtain a proBNP
Original Note:
Today's Communication/Plan
-
Assessment / Plan
Assessment / Plan
General: No Apparent Distress, Comfortable and Conversant
HEENT: NormoCephalic, Moist mucous membranes, Atraumatic
Respiratory: Clear and Non Labored Respirations
Cardiac: S1/S2 and Regular Rhythm; No Rub or Gallop
GI: Soft, Non Tender, Non Distended and Normal Bowel Sounds
Musculoskeletal: No Edema, no deformity
Skin: Warm and dry
: NO Carter
Neuro: Awake, Alert, Nonfocal/grossly intact
Psych: Calm and Intact Judgment/Insight
Ms. Mcclure is a 64-year-old female with a medical history of hypertension, Graves' disease, thyroid cancer, acquired hypothyroidism, CVA, renal artery stenosis, MS, CAD, and pacemaker placement who presented with right flank pain with nausea and
vomiting. She was found to have leukocytosis of just over 16,000 and urinalysis with pyuria and bacteria. CT imaging showed stricture versus impacted stone in the distal right ureter with proximal hydroureteronephrosis and possible infection. She
was started on antibiotics with cefepime and has been admitted for further evaluation and management of suspected pyelonephritis with ureteral stricture versus stone impaction.
Right-sided pyelonephritis:
- With associated stricture of the distal right ureter versus impacted stone
- Continuing antibiotics with cefepime, urine cultures growing E. coli, sensitivities pending
- IV fluids
- Planning OR on Thursday with urology
- Regular diet for now, n.p.o. after midnight
Hypertension:
- Continue home amlodipine 5 mg daily
Cerebrovascular disease:
- History of stroke
- Continue aspirin and statin
- Apparently Plavix has been discontinued for months, received 1 dose after admission, now discontinued
Acquired hypothyroidism:
- Continue home Synthroid 150 mcg daily
DVT prophylaxis: Subcu heparin
CODE STATUS: Full code
Anticipated Discharge: > 48 hours
Subjective/Interval History
-
Date of Service: May 05, 2025
Patient was seen and examined at bedside this morning. Remains on antibiotics for pyelonephritis. Plan for OR tomorrow with urology.
Objective Data
-
Vital Signs:
Vital Signs
Temp Pulse Resp BP Pulse Ox
98.2 F 71 18 154/73 95
05/05/25 07:20 05/05/25 10:23 05/05/25 07:20 05/05/25 10:23 05/05/25 07:20
I&O
05/04/25 05/05/25 05/06/25
06:59 06:59 06:59
Intake Total 440 / 440
Output Total 600 / 600
Balance -160 / -160
Review of Systems
-
History Source: Patient
All other systems: Reviewed and negative
Physical Exam
-
General: No Apparent Distress
[2025-05-05 15:14] LABS: Hematocrit 33.4 % (37.0-47.0); Hemoglobin 11.2 g/dL (12.0-16.0); Mean Corp Hgb Conc. 33.5 g/dL (33.0-37.0); Mean Corpuscular Volume 94.6 fL (81.0-99.0); Nucleated Red Blood Cells % 0 %; Platelet Count 181 10^3/uL (130-400); Red Cell Dist. Width 13.3 % (11.5-14.5)
[2025-05-05 15:39] LABS: ALT (SGPT) 22 U/L (0-35); AST (SGOT) 16 U/L (14-36); Albumin 3.2 g/dl (3.5-5.0); Alkaline Phosphatase 86 U/L (38-126); Blood Urea Nitrogen 18 mg/dl (7-17); Calcium 8.1 mg/dl (8.4-10.2); Carbon Dioxide 27 mmol/L (22-30); Chloride 111 mmol/L (98-107); Estimated Creatinine Clearance 87 ml/min; Glucose 160 mg/dl (70-99); Potassium 3.7 mmol/L (3.5-5.1); Sodium 141 mmol/L (135-145); Total Protein 6.1 g/dl (6.3-8.2); eGFR > 60.00
[2025-05-05] MEDS: LIPITOR 80 MG PO (21:17)
[2025-05-05] MEDS: ZETIA 10 MG PO (21:17)
[2025-05-06] VITALS (10 sets, daily range): BP systolic 153–180; BP diastolic 64–84
[2025-05-06] MEDS: SYNTHROID 150 MCG PO (05:28)
[2025-05-06] MEDS: MAXIPIME 1000 MG IV ×2 (05:28→12:20)
[2025-05-06] MEDS: STERILE WATER FOR INJECTION 10 ML IV ×3 (05:28→16:31)
[2025-05-06] MEDS: NSS 1000 IV ×2 (06:33→17:31)
--- NOTE | 2025-05-06 07:58 | PTCARENOTE ---
Addendum entered by Lubna Vallejo RN 05/06/25 10:11:
pt returned from OR at 0930. vital signs as charted. pt denies pain
Original Note:
pt taken to OR by RN
--- NOTE | 2025-05-06 08:51 | W.SUR.POST ---
Surgical Immediate Post Op
Note
Pre Op Diagnosis:
rt hydro due to rt ureteral stricture with 2 stones
Post Op Diagnosis: same
Procedure Performed: rt ureteroscopy dolation of stricture lasr and basked=t stones rt jj stent and rgp
Primary Surgeon: kraig
Secondary Surgeons:
Anesthesia: general dr nails
Estimated Blood Loss: 1
Fluids:nss
Drains/Shunts: 6 fr 24 cm jj stent
Specimens/Cultures:stone
Doppler/Duplex/Angio (Y/N):
Complications: 0
Operative Findings: tight rt ureteral stricture with 2 stones impacted tin lumen
[2025-05-06] MEDS: PAXIL 40 MG PO (09:51)
[2025-05-06] MEDS: HEPARIN 5000 UNITS SC ×3 (09:51→23:37)
[2025-05-06] MEDS: NORVASC 5 MG PO (09:51)
[2025-05-06] MEDS: WELLBUTRIN XL (24 hour extended release) 150 MG PO (09:51)
[2025-05-06] MEDS: LOW STRENGTH ASPIRIN 81 MG PO (09:51)
[2025-05-06 11:55] LABS: INR 0.99; PT 13.4 Sec (11.4-14.6)
[2025-05-06 11:56] LABS: APTT 32.6 Sec (23.4-35.0)
[2025-05-06] MEDS: NSS IV (12:20)
[2025-05-06 13:59] LABS: Hematocrit 33.7 % (37.0-47.0); Hemoglobin 11.2 g/dL (12.0-16.0); Mean Corp Hgb Conc. 33.2 g/dL (33.0-37.0); Mean Corpuscular Volume 94.7 fL (81.0-99.0); Nucleated Red Blood Cells % 0 %; Platelet Count 195 10^3/uL (130-400); Red Cell Dist. Width 13.0 % (11.5-14.5)
[2025-05-06 14:05] LABS: Blood Urea Nitrogen 17 mg/dl (7-17); Calcium 8.2 mg/dl (8.4-10.2); Carbon Dioxide 27 mmol/L (22-30); Chloride 108 mmol/L (98-107); Estimated Creatinine Clearance 99 ml/min; Glucose 283 mg/dl (70-99); Potassium 4.2 mmol/L (3.5-5.1); Sodium 138 mmol/L (135-145); eGFR > 60.00
--- NOTE | 2025-05-06 14:10 | W.PN.HOSP.TC ---
Today's Communication/Plan
-
Assessment / Plan
Assessment / Plan
General: No Apparent Distress, Comfortable and Conversant
HEENT: NormoCephalic, Moist mucous membranes, Atraumatic
Respiratory: Clear and Non Labored Respirations
Cardiac: S1/S2 and Regular Rhythm; No Rub or Gallop
GI: Soft, Non Tender, Non Distended and Normal Bowel Sounds
Musculoskeletal: No Edema, no deformity
Skin: Warm and dry
: NO Carter
Neuro: Awake, Alert, Nonfocal/grossly intact
Psych: Calm and Intact Judgment/Insight
Ms. Mcclure is a 64-year-old female with a medical history of hypertension, Graves' disease, thyroid cancer, acquired hypothyroidism, CVA, renal artery stenosis, MS, CAD, and pacemaker placement who presented with right flank pain with nausea and
vomiting. She was found to have leukocytosis of just over 16,000 and urinalysis with pyuria and bacteria. CT imaging showed stricture versus impacted stone in the distal right ureter with proximal hydroureteronephrosis and possible infection. She
was started on antibiotics with cefepime and has been admitted for further evaluation and management of suspected pyelonephritis with ureteral stricture versus stone impaction.
Right-sided pyelonephritis:
- With associated stricture of the distal right ureter versus impacted stone
- Status post or with urology this morning 05/06 for stone removal and right ureteral stent placement
- Clinically improving, urine cultures growing pansensitive E. coli, will switch antibiotics to ceftriaxone, can continue antibiotics with Augmentin after discharge to complete a 7-day course
- IV fluids
- Anticipate discharge home tomorrow
Hypertension:
- Continue home amlodipine 5 mg daily
Cerebrovascular disease:
- History of stroke
- Continue aspirin and statin
- Apparently Plavix has been discontinued for months, received 1 dose after admission, now discontinued
Acquired hypothyroidism:
- Continue home Synthroid 150 mcg daily
DVT prophylaxis: Subcu heparin
CODE STATUS: Full code
Anticipated Discharge: 24 - 48 hours
Subjective/Interval History
-
Date of Service: May 06, 2025
Patient was seen and examined bedside this morning. She is status post OR with urology for left ureteral stent placement. She tolerated the procedure well.
Objective Data
-
Labs:
Laboratory Results
05/06/25 05/06/25
10:30 13:39
WBC 11.1 H
Hgb 11.2 L
Hct 33.7 L
Plt Count 195
PT 13.4
INR 0.99
APTT 32.6
Sodium Cancelled 138
Potassium Cancelled 4.2
Chloride Cancelled 108 H
Carbon Dioxide Cancelled 27
BUN Cancelled 17
Creatinine Cancelled 0.7
Glucose Cancelled 283 H
Calcium Cancelled 8.2 L
Vital Signs:
Vital Signs
Temp Pulse Resp BP Pulse Ox
99.1 F 70 18 164/68 92
05/06/25 12:30 05/06/25 12:30 05/06/25 12:30 05/06/25 12:30 05/06/25 12:30
I&O
05/05/25 05/06/25 05/07/25
06:59 06:59 06:59
Intake Total 440 / 440 480 / 480 100 / 100
Output Total 600 / 600
Balance -160 / -160 480 / 480 100 / 100
Review of Systems
-
History Source: Patient
All other systems: Reviewed and negative
Physical Exam
-
General: No Apparent Distress
[2025-05-06] MEDS: ROCEPHIN 1000 MG IV (16:31)
[2025-05-06] MEDS: ZETIA 10 MG PO (21:50)
[2025-05-06] MEDS: LIPITOR 80 MG PO (21:51)
[2025-05-07 03:00] VITALS: BP 171/72
[2025-05-07] MEDS: NSS 1000 IV (04:11)
[2025-05-07] MEDS: APRESOLINE 5 MG IV (04:38)
[2025-05-07] MEDS: SYNTHROID 150 MCG PO (04:42)
--- NOTE | 2025-05-07 04:54 | PTCARENOTE ---
0330 pt's BP 182/74. Manual BP 182 /72, pt is asymptomatic. WRAPPER SORTER made aware. 1x dose 5mg Hydralazine ordered. Pt expresses no other needs at this time. Call larsen within reach.
[2025-05-07 07:48] VITALS: BP 166/84
[2025-05-07 08:49] LABS: Blood Urea Nitrogen 15 mg/dl (7-17); Calcium 8.6 mg/dl (8.4-10.2); Carbon Dioxide 27 mmol/L (22-30); Chloride 110 mmol/L (98-107); Estimated Creatinine Clearance 99 ml/min; Glucose 174 mg/dl (70-99); Potassium 4.0 mmol/L (3.5-5.1); Sodium 141 mmol/L (135-145); eGFR > 60.00
[2025-05-07] MEDS: PAXIL 40 MG PO (09:10)
[2025-05-07] MEDS: HEPARIN 5000 UNITS SC (09:11)
[2025-05-07] MEDS: WELLBUTRIN XL (24 hour extended release) 150 MG PO (09:11)
[2025-05-07] MEDS: LOW STRENGTH ASPIRIN 81 MG PO (09:11)
[2025-05-07] MEDS: NORVASC 5 MG PO (09:11)
--- NOTE | 2025-05-07 10:45 | W.DCSUMMARY ---
Discharge Summary
Discharge Data
Date of Admission: 05/04/25
Date of Discharge: 05/07/25
Total time spent discharging patient (in min): 45
-
Pending Results: No
Hospital Course
Ms. Mcclure is a 64-year-old female with a medical history of hypertension, Graves' disease, thyroid cancer, acquired hypothyroidism, CVA, renal artery stenosis, MS, CAD, and pacemaker placement who presented with right flank pain with nausea and
vomiting. She was found to have leukocytosis of just over 16,000 and urinalysis with pyuria and bacteria. CT imaging showed stricture versus impacted stone in the distal right ureter with proximal hydroureteronephrosis and possible infection. She
was started on antibiotics with cefepime and admitted for further evaluation and management of pyelonephritis with ureteral stricture with stone impaction.
She was brought to the OR on the morning of 05/06/2025 with urology for stone removal and right ureteral stent placement. She tolerated the procedure well. Her urine cultures grew pansensitive E. coli at which time her antibiotics were switched to
ceftriaxone. She continued to improve clinically. She was able to be discharged home to complete 3 more days of antibiotics with oral Augmentin (total 7-day antibiotic course). She will need to follow-up in the outpatient urology office in 2 to 3
weeks for evaluation and stent removal.
General: No Apparent Distress, Comfortable and Conversant
HEENT: NormoCephalic, Moist mucous membranes, Atraumatic
Respiratory: Clear and Non Labored Respirations
Cardiac: S1/S2 and Regular Rhythm; No Rub or Gallop
GI: Soft, Non Tender, Non Distended and Normal Bowel Sounds
Musculoskeletal: No Edema, no deformity
Skin: Warm and dry
: NO Carter
Neuro: Awake, Alert, Nonfocal/grossly intact
Psych: Calm and cooperative
Discharge Plan
-
Patient Disposition: Home (Routine Discharge)
Discharge Diagnosis/Procedures: Pyelonephritis, ureteral stones
Activity Restrictions/Additional Instructions:
You were admitted for treatment of a kidney infection (pyelonephritis) which seems to have been a complication of kidney stones that were stuck in your ureter. The stones were removed and a ureteral stent was placed. You were treated with IV
antibiotics and will be transitioned to oral antibiotics which you can take at home. You will need to follow-up with your urologist in the outpatient office in 2 to 3 weeks for removal of your ureteral stent.
Referrals:
Ferdinand Munoz MD [Active, Urology]
Referral Note: call heri munoz or marla [phone] to schedule stent removal 3- weeks You have a stent expect frequency urgecy blood in urine and pain on urinatiin
Parmjit Dias, [Family Provider, Family Practice]
Prescriptions:
New
amoxicillin-pot clavulanate 875-125 mg tablet
1 tab PO BID 3 Days Qty: 6 0RF
Continued
ezetimibe 10 MG tablet
10 mg PO HS
aspirin 81 MG tablet,chewable
81 mg PO DAILY
atorvastatin 80 mg tablet
80 mg PO HS
paroxetine HCl 40 mg tablet
40 mg PO DAILY
amlodipine 5 mg Tablet
5 mg PO DAILY 30 Days Qty: 30 0RF
cholecalciferol (vitamin D3) [Vitamin D3] 25 mcg (1,000 unit) Tablet
25 mcg PO DAILY
bupropion HCl 150 mg Tablet Extended Release 24 Hr
150 mg PO DAILY
levothyroxine 150 mcg Tablet
150 mcg PO DAILY
Discharge Orders:
Discharge Patient (As Directed); Ordered 05/07/25
Ordered By: Theodore Marques
Discharge Date and Time
Print Language: TAIWANESE
[2025-05-07 11:38] VITALS: BP 149/65
--- NOTE | 2025-05-07 12:06 | CM ---
Met with patient at bedside; she reported that Son will provide transport home
IMM benefit explained; form dated/timed @ 1200
Plan: Discharge to home; no needs
--- NOTE | 2025-05-07 12:42 | W.PN.URO.CBU ---
Today's Communication / Plan
-
o n k to d/c whem hosp[italis t oks
Assessment / Plan
-
uti and chronic rt hydro with acute perinephric stranding rt uretera stricturedilated stones removed stentd hoe when ok with hspitalist will remove stent as outpatinet andthen sxcan to se if stricture returned
Diagnosis
-
Date of Service: May 07, 2025
-
Patient Diagnosis:
Post Op Day:
Patient Diagnosis:
Post Op Day:
Patient Diagnosis:uti and rt hydronephrosois
Post Op Day:
Subjective
-
tolerating stent well
Objective
-
Vital Signs
Temp Pulse Resp BP Pulse Ox
97.8 F 61 16 149/65 97
05/07/25 11:38 05/07/25 11:38 05/07/25 11:38 05/07/25 11:38 05/07/25 11:38
Intake and Output
05/06/25 05/07/25 05/08/25
06:59 06:59 06:59
Intake Total 480 / 480 580 / 580
Balance 480 / 480 580 / 580
Intake:
Oral fluids 480 / 480 480 / 480
IV fluids (Total) 100 / 100
NSS 100 / 100
Other:
How many times incontinent 2
MODERATE amount urine
How many times incontinent 4 1 1
SATURATED amount urine
Laboratory Results
05/07/25 07:15
Review of Systems
-
: Frequency
Physical Exam
-
General - well developed, well nourished, no acute distress
Chest - clear bilaterally
Abdomen - soft, non-tender, positive bowel sounds, no CVAT, no incisional pain or distention
Genitalia - normal
Rectal - normal
Skin - warm & dry with no rash
Neuro - AOx3, no motor deficits
Extremities - no clubbing, no cyanosis, no edema
Incision - clean, dry
Dressing - clean, dry, intact
Counseling
-
home
Care Review
Data Reviewed
Discussed with: Hospitalist
[2025-05-07] MEDS: NSS IV (14:53)
[2025-05-07 15:31] VITALS: BP 149/70
== END 2025-05-07 16:03 | disposition home or self-care (01) | DRG 660 ==
LOC: 4 WEST ACU 00:41
PROVIDERS: Emergency Medicine; ADMITTING PHYSICIAN Internal Medicine; ATTENDING PHYSICIAN Internal Medicine; EMERGENCY PHYSICIAN Student in an Organized Health Care Education/Training Program; FAMILY PHYSICIAN Family Medicine; OTHER PHYSICIAN Specialist
PROC: 0T768DZ Dilation of Right Ureter with Intraluminal Device, Via Natural or Artificial Opening Endoscopic (ICD-10-PCS; 2025-05-06)
PROC: BT1D1ZZ Fluoroscopy of Right Kidney, Ureter and Bladder using Low Osmolar Contrast (ICD-10-PCS; 2025-05-06)
PROC: 0TC68ZZ Extirpation of Matter from Right Ureter, Via Natural or Artificial Opening Endoscopic (ICD-10-PCS; 2025-05-06)
DX: N13.6 Pyonephrosis (principal); N20.2 Calculus of kidney with calculus of ureter; Z85.850 Personal history of malignant neoplasm of thyroid; E03.9 Hypothyroidism, unspecified; I10 Essential (primary) hypertension; I25.10 Atherosclerotic heart disease of native coronary artery without angina pectoris; Z95.0 Presence of cardiac pacemaker; Z86.73 Personal history of transient ischemic attack (TIA), and cerebral infarction without residual deficits; B96.20 Unspecified Escherichia coli [E. coli] as the cause of diseases classified elsewhere; Z79.890 Hormone replacement therapy; Z85.42 Personal history of malignant neoplasm of other parts of uterus; Z79.899 Other long term (current) drug therapy; Z79.82 Long term (current) use of aspirin; Z79.02 Long term (current) use of antithrombotics/antiplatelets; E11.9 Type 2 diabetes mellitus without complications; E66.9 Obesity, unspecified; Z68.36 Body mass index [BMI] 36.0-36.9, adult; E78.00 Pure hypercholesterolemia, unspecified; F32.A Depression, unspecified; G89.29 Other chronic pain; Z87.442 Personal history of urinary calculi; Z87.891 Personal history of nicotine dependence; Z95.5 Presence of coronary angioplasty implant and graft; Z96.652 Presence of left artificial knee joint
CPT/HCPCS: 74176; 74420; 76000; 80048; 80053; 81003; 81015; 82365; 83690; 83735; 83880; 85025; 85027; 85610; 85730; 87077; 87086; 87186; 93005; A4300; C2617

== ENCOUNTER 2025-06-29 06:24 | Day surgery (SDC) | payer MEDICARE, SELFPAY ==
[2025-06-29] VITALS (8 sets, daily range): BP systolic 132–176; BP diastolic 51–82; BMI 31.4
[2025-06-29] MEDS: NORMOSOL-R/PLASMALYTE-A 1000 IV (09:40)
== END 2025-06-29 13:02 | disposition home or self-care (01) ==
LOC: SDS 06:24
PROVIDERS: ATTENDING PHYSICIAN Specialist
DX: N13.5 Crossing vessel and stricture of ureter without hydronephrosis (principal); N31.9 Neuromuscular dysfunction of bladder, unspecified; Z86.73 Personal history of transient ischemic attack (TIA), and cerebral infarction without residual deficits; Z87.442 Personal history of urinary calculi; Z87.440 Personal history of urinary (tract) infections
CPT/HCPCS: 52332; 50385; 74420; 76000; 87077; 87086